=== PATIENT | male | born 1950 | race Caucasian/White ===

== ENCOUNTER 2016-08-30 07:50 | Observation (INO) | payer MEDICARE, MEDICAID ==
--- NOTE | 2016-08-30 08:30 | RAD ---
HISTORY: Chest pain COMPARISONS: April 15, 2016 VIEWS:1: Single frontal portable view of the chest at 8:15 AM. The patient is slightly obliqued to the left. FINDINGS: LINES AND TUBES: None. CARDIOMEDIASTINAL SILHOUETTE: The cardiomediastinal silhouette is normal for portable technique. PLEURA: The costophrenic angles are sharp. No pleural abnormalities are noted. LUNG PARENCHYMA: The lungs are clear. ABDOMEN: The upper abdomen is clear. There is no subphrenic gas. BONES AND SOFT TISSUES: No bone or soft tissue abnormalities are noted. IMPRESSION: NO ACTIVE CARDIOPULMONARY DISEASE.
[2016-08-30 08:48] LABS: Hematocrit 37 % (42-52); Hemoglobin 12.3 g/dl (14.0-18.0); Mean Corpuscular HGB Conc 33 g/dl (31-36); Mean Corpuscular Hemoglobin 32 pg (27-31); Mean Corpuscular Volume 95 fL (80-94); Mean Platelet Volume 10 um3 (7.4-10.4); Red Blood Count 3.87 10^6/ul (4.0-5.4); Red Cell Distribution Width 14 % (10.5-15); White Blood Count 7.4 10^3/ul (3.5-10.8)
[2016-08-30 09:05] LABS: Albumin 3.9 g/dL (3.2-5.2); Calcium 9.4 mg/dL (8.6-10.3); EGFR African American 92.5 (>60); EGFR Non-African American 71.9 (>60); Globulin 2.9 g/dL (2-4); Potassium 4.2 mmol/L (3.5-5.0); Total Bilirubin 0.3 mg/dL (0.2-1.0); Total Protein 6.8 g/dL (6.4-8.9)
[2016-08-30 09:08] LABS: Troponin I 0.03 ng/mL (<0.04)
[2016-08-30] MEDS ORDERED: Iohexol 350* (CONTRAST) 500 ML MDV IV ONE (09:14)
--- NOTE | 2016-08-30 09:20 | RAD ---
HISTORY: Chest pain, left lower extremity edema COMPARISONS: None relevant TECHNIQUE: Multiple transverse and longitudinal ultrasound images were obtained of the left lower extremity from the level of the common femoral vein inferiorly through to the infrapopliteal veins using grayscale, color Doppler, and spectral Doppler imaging with and without compression and with augmentation. Comparison images were obtained of the contralateral common femoral vein. FINDINGS: VEINS: The venous system of the left lower extremity is compressible throughout its course, with normal flow on color Doppler imaging and normal response to augmentation on spectral Doppler imaging. SOFT TISSUES: Unremarkable. OTHER FINDINGS: None. IMPRESSION: NO LEFT LOWER EXTREMITY DEEP VEIN THROMBOSIS
--- NOTE | 2016-08-30 10:12 | RAD ---
Indication: Chest pain. CTA of the chest was performed after IV contrast administered. Coronal and sagittal reconstructed images were obtained. Administered 76.9 ml of OMNIPAQUE 350 mgi/ml was given according to hospital protocol. Coronal and sagittal reconstructed images were obtained. Pulmonary arterial tree is well opacified. No filling defects are noted to suggest pulmonary embolus. The aorta demonstrates no evidence of aortic dissection. There may be an ulcerating plaque in the aortic arch laterally. Dependent changes are noted in the lung butcher. Cardiomegaly is noted without pericardial effusion. The trachea and major bronchi appear patent. There is no mediastinal or hilar adenopathy. The esophagus appears unremarkable IMPRESSION: No evidence of pulmonary embolism is noted. No evidence of aortic dissection although an ulcerating plaque is noted at the aortic arch.
[2016-08-30] MEDS ORDERED: Aspirin TAB* 325 MG PO ONE (11:34)
[2016-08-30 12:00] LABS: Magnesium 1.9 mg/dL (1.9-2.7)
[2016-08-30] MEDS: Baclofen TAB* 10 MG PO SCH (13:27)
[2016-08-30] MEDS: Lisinopril TAB* 10 MG PO SCH (13:27)
[2016-08-30] MEDS: Enoxaparin(*) 40 MG/0.4 ML SYR SUBCUT SCH (13:28)
[2016-08-30] MEDS: NS 0.9% 1000 ML* 1,000 ML IV SCH ×2 (13:31→23:26)
[2016-08-30] MEDS: Triamcinolone 0.025% OINT * 15 GM TUBE TOPICAL SCH (13:35)
--- NOTE | 2016-08-30 14:32 | HP ---
MEDICINE HISTORY AND PHYSICAL: DATE OF ADMISSION: 08/30/16 PROVIDER: Mary Powell NP ATTENDING PHYSICIAN: Dr. Rodney Lazar *(as dictated by Mary Powell NP) PRIMARY CARE PHYSICIAN: Dane Flores. CHIEF COMPLAINT: Chest pain. HISTORY OF PRESENT ILLNESS: Mr. Malcolm is a 66-year-old gentleman with a past medical history significant for multiple sclerosis and hypertension, who presented to the ED today with chest pain. The patient states that the pain "woke me up" around 5:30. He describes the pain as being in his left upper chest and then eventually moving to his right arm which he describes as going numb. The pain also moved to his right jaw. He states that he does have chronic left-sided weakness and paralysis at baseline, so he could not tell if there was any tingling or numbness to that side. He also described the feeling of his heart "pumping fast" and palpitations. He said this has happened before , but usually he waits it out and it resolves over several minutes with deep breathing. He states he waited approximately 1 hour before calling EMS due to lack of resolution of his symptoms. He denies any accompanying nausea, vomiting , diaphoresis. He denies any recent fever, chills, cold, or flu symptoms. He does again report chest pain. He reports chronic left lower extremity edema and states that it is worse today and more recently because he has not been able to keep it elevated as usual and also recently ate salty food. He denies any cough, hemoptysis, or shortness of breath. He denies abdominal pain, nausea , vomiting, or diarrhea. He denies dysuria. He does state that he recently had an UTI, but denies any dysuria or hematuria. He has a history of MS, but denies any focal weakness or sensory loss, beyond his baseline. He does report that he has some worsening double vision. He reports spasms in his right- sided extremities and increasing right shoulder pain, but states this is due to overuse as he uses his right side solely for transfers. The patient denies any difficulty sleeping or orthopnea. In the ED, the patient had initial labs drawn which showed a troponin of 0.03. He had a CTA and a venous Doppler of his left lower extremity, both of which were negative. PAST MEDICAL HISTORY: Significant for: 1. Multiple sclerosis with left paralysis at baseline. 2. Vitamin D deficiency. 3. Hypertension. 4. Depression. 5. Eczema. HOME MEDICATIONS: 1. Tizanidine 4 mg at bedtime. 2. Nystatin topical powder one application b.i.d. 3. Copaxone 20 mg subcu Monday, Wednesdays, and Fridays. 4. Cholecalciferol 3000 units daily. 5. Acetaminophen 1000 mg daily p.r.n. 6. Lisinopril 10 mg daily. 7. Aspirin 81 mg daily. 8. Nortriptyline 50 mg at bedtime. 9. Triamcinolone 0.1% ointment 1 application topical daily. 10. Baclofen 20 mg b.i.d., 10 mg in the evening, and 30 mg at bedtime. 11. Pravastatin 20 mg daily. ALLERGIES: No known drug allergies. FAMILY HISTORY: He reports his father with congenital heart disease. He reports coronary artery disease and leukemia in his mother. He reports a brother with diabetes and a sister with fibromyalgia. SOCIAL HISTORY: The patient states that he started smoking about 19 and quit approximately 10 years ago. He was a 3-tmes-s-day smoker. He denies any illicit drug use. He states that he uses alcohol rarely. He lives at [facility] in [place]. He reports that he does have an aide that comes Monday, Wednesdays, and Fridays for 2 hours a day to help with housework and he has 2 other aides that come in daily for an hour each day to help him with his ADLs. He reports that he has five children and two ex-wives. He is in contact with one of his sons, and his son, Colton Lomax, is his healthcare proxy. In terms of the patient's ADLs, at baseline, he uses a power wheelchair and he is able to transfer from the wheelchair to the bed and to the toilet, but does need help getting into his bathtub. REVIEW OF SYSTEMS: A 14-point review of systems was completed. All pertinent positives and negatives are included in the HPI. All others not mentioned are negative. PHYSICAL EXAMINATION GENERAL: Mr. Malcolm is a 66-year-old male patient who is lying in ED stretcher in no acute distress. VITAL SIGNS: Temperature 98.4, respiratory rate 22, heart rate 100, blood pressure 130/79, O2 saturation 98% on room air. HEENT: Head is atraumatic and normocephalic. Face is symmetrical. Pupils are equal, round, and reactive to light. Extraocular movements are intact. External ears and nose are normal. Oral mucosa appears moist. There is no oropharyngeal erythema or exudate. NECK: Neck is supple. No JVD noted. No lymphadenopathy noted. RESPIRATORY: Lungs are clear to auscultation bilaterally. There is no accessory muscle use. CARDIAC: S1, S2. Heart sounds regular rate and rhythm. No murmurs, rubs, or gallops. ABDOMEN: Soft, nontender, nondistended. Bowel sounds are present in all 4 quadrants. EXTREMITIES: The patient does have left lower extremity edema that is 2+ and pitting. Distal pulses are 2+ in the right lower extremity and 1+ in the left lower extremity. MUSCULOSKELETAL: There is no clubbing or cyanosis. The patient has left-sided paralysis, but good movement and range of motion in the right upper and lower extremities. NEURO: The patient is able to move all extremities. No focal deficits noted, although the patient does have left-sided paralysis at baseline, is unable to mobilize his left upper or lower extremity, this is not new. PSYCH: He is alert and oriented x3. His affect is appropriate. SKIN: Limited assessment, but anteriorly looks to be grossly intact. DIAGNOSTIC STUDIES/LAB DATA: CBC: WBC is 7.4, hemoglobin 12.3, hematocrit 37 , platelet count 219. INR 0.96, PTT 34.5. CMP: Sodium 136, potassium 4.2, chloride 103, carbon dioxide 27, BUN 25, creatinine 1.04, glucose 109, lactic acid 1.3, calcium 9.4. Total bilirubin 0.3, AST 17, ALT 19, alk phos 65. Total CK 86. Troponin 0.03. BNP 9. Albumin 3.9. The patient's venous Doppler shows no left lower extremity deep vein thrombosis. CTA of chest and thorax shows no evidence of pulmonary embolism is noted. No evidence of aortic dissection, also an ulcerative plaque is noted at the aortic arch. Chest x-ray, impression: No active cardiopulmonary disease. The patient's EKG shows sinus tachycardia with borderline left axis deviation and normal R-wave progression, rate 101. Old medical records were reviewed. ASSESSMENT AND PLAN: Mr. Malcolm is a 66-year-old male patient with a past medical history significant for multiple sclerosis, hypertension, former tobacco use, depression, and vitamin D deficiency. He presents today with chest pain. We will admit him under OBV status to the telemetry floor. The plan is as follows: 1. Chest pain. Rule acute coronary syndrome, admit to telemetry. We will trend the patient's troponin. Recheck an EKG and plan for chemical stress test in the morning. The patient will be on heart-healthy diet and then p.o. after midnight. His AVELINO score is 2. Based on risk factors, previous use of aspirin. He has not previously had a stress test. Given that he has been reporting palpitations and chest pains that come and go for several weeks, the plan is to keep the patient here in order to obtain a stress test during this admission. In terms of his tachycardia, the patient does appear to be a little dry. So, I will give him 2 L of fluid. We will also check a mag, A1c, and lipid profile in the morning. 2. Multiple sclerosis. Continue maintenance medications of Copaxone, tizanidine, and baclofen. I will order PT and OT to assist with the patient, so he does not decondition while he is here. 3. Hypertension. Continue lisinopril. 4. Depression. Continue nortriptyline. 5. Eczema. Continue triamcinolone cream. 6. FEN. The patient is ordered a heart-healthy diet and IV hydration. 7. DVT prophylaxis. He is ordered subcu Lovenox. 8. Code status. He is a full code. TIME SPENT: Time spent on this admission was approximately 60 minutes, more than half the time was spent [id number] with the patient obtaining history and physical, performing physical examination, and reviewing the plan of care. Plan of care was also reviewed with my attending, Dr. Lazar, who is in agreement. MARY POWELL NP CC: Dr. Jasvir Rushing* [id number]/CPS #: [id number] SHILA
[2016-08-30] MEDS ORDERED: Baclofen TAB* 10 MG PO SCH ×2 (18:00→21:00)
[2016-08-30] MEDS: Nystatin TOP POWDER* 15 GM BTL TOPICAL SCH ×2 (19:50→19:52)
[2016-08-30] MEDS ORDERED: tiZANidine TAB* 2 MG PO SCH (21:00)
[2016-08-30] MEDS ORDERED: Nortriptyline CAP* 25 MG PO SCH (21:00)
[2016-08-31 05:39] LABS: HDL Cholesterol 25.9 mg/dL
[2016-08-31 05:43] LABS: Troponin I 0.1 ng/mL (<0.04)
--- NOTE | 2016-08-31 08:07 | PN ---
Subjective Date of Service: 08/31/16 Interval History: - patient denies any further CP since he was admitted. He reports he has had similar symptoms before in the past but they have resolved quickly and this time the discomfort/pain seemed to linger. Feels that he is at his baseline. No compliants. denies SOB. Reports left LE swelling but states this is his baseline. Objective Active Medications: Aspirin (Aspirin Ec Low Dose*) 81 mg PO DAILY [facility] Atorvastatin Calcium (Lipitor*) 5 mg PO DAILY [facility] PRN Reason: Protocol Baclofen (Lioresal Tab*) 10 mg PO QPM [facility] Last Admin: 08/30/16 18:02 Dose: 10 mg Baclofen (Lioresal Tab*) 20 mg PO 0800,1200 [facility] Last Admin: 08/30/16 13:27 Dose: 20 mg Baclofen (Lioresal Tab*) 30 mg PO BEDTIME [facility] Last Admin: 08/30/16 19:50 Dose: 30 mg Cholecalciferol (Vitamin D Tab*) 3,000 units PO DAILY [facility] Enoxaparin Sodium (Lovenox(*)) 40 mg SUBCUT Q24H [facility] Last Admin: 08/30/16 13:28 Dose: 40 mg Glatiramer Acetate (Copaxone(Nf)) 20 mg SUBCUT MOWEFR [facility] Sodium Chloride (Ns 0.9% 1000 Ml*) 1,000 mls @ 100 mls/hr IV PER RATE [facility] Stop: 08/31/16 21:44 Last Admin: 08/30/16 23:26 Dose: 100 mls/hr Lisinopril (Prinivil Tab*) 10 mg PO 1300 [facility] Last Admin: 08/30/16 13:27 Dose: 10 mg Nortriptyline HCl (Pamelor Cap*) 50 mg PO BEDTIME [facility] Last Admin: 08/30/16 19:50 Dose: 50 mg Nystatin (Nystatin Top Powder*) 1 applic TOPICAL BID [facility] Last Admin: 08/30/16 19:52 Dose: Not Given Tizanidine HCl (Zanaflex Tab*) 4 mg PO BEDTIME [facility] Last Admin: 08/30/16 19:50 Dose: 4 mg Triamcinolone Acetonide (Triamcinolone 0.025% Oint *) 1 applic TOPICAL DAILY [facility] Last Admin: 08/30/16 13:35 Dose: Not Given Vital Signs 08/30/16 08/30/16 08/30/16 11:00 11:30 12:00 Temperature Pulse Rate 91 89 88 Respiratory 18 11 14 Rate Blood Pressure 130/79 124/83 121/78 (mmHg) O2 Sat by Pulse 97 95 96 Oximetry 08/30/16 08/30/16 08/30/16 12:53 13:03 14:18 Temperature 97.4 F 97.4 F Pulse Rate 91 95 Respiratory 14 14 Rate Blood Pressure 150/102 150/102 (mmHg) O2 Sat by Pulse 100 100 Oximetry 08/30/16 08/30/16 08/30/16 16:24 20:48 23:31 Temperature 97.6 F 97.8 F 97.4 F Pulse Rate 88 84 79 Respiratory 16 14 20 Rate Blood Pressure 121/83 102/66 96/63 (mmHg) O2 Sat by Pulse 95 96 98 Oximetry 08/31/16 04:08 Temperature 97.5 F Pulse Rate 76 Respiratory 16 Rate Blood Pressure 113/62 (mmHg) O2 Sat by Pulse 96 Oximetry Appearance: 66 yo male laying in bed in NAD A+O x3. appropriate Eyes: No Scleral Icterus, PERRLA Ears/Nose/Mouth/Throat: NL Teeth, Lips, Gums, Mucous Membranes Moist Neck: NL Appearance and Movements; NL JVP, Trachea Midline Respiratory: Symmetrical Chest Expansion and Respiratory Effort, Clear to Auscultation Cardiovascular: NL Sounds; No Murmurs; No JVD, RRR Abdominal: NL Sounds; No Tenderness; No Distention Extremities: - - Left sided paralysis Skin: No Rash or Ulcers, No Nodules or Sclerosis Neurological: Alert and Oriented x 3 Lines/Tubes/Other Access: Clean, Dry and Intact Peripheral IV Nutrition: - - npo for stress test Result Diagrams: 08/30/16 08:30 08/30/16 08:30 Assess/Plan/Problems-Billing Assessment: Mr. Malcolm is a 66 yo male with a PMH of MS with L sided paralysis at baseline, HTN, depression and hx of previous tobacco abuse who presented to the ED on 08/30 with c/o chest pain. - Patient Problems (1) Chest pain Comment: - no further chest pain - Trop peaked 0.15, suspect demand ischemia - chemical stress and cardiac nuclear stress test placing him at low risk. - No EKG changes (2) Multiple sclerosis Comment: - continue tizanidine, baclofen and copaxone (3) Depression Comment: - continue nortriptyline (4) HTN (hypertension) Comment: - controlled. continue lisinopril (5) Eczema Comment: - continue Triaminolone cream (6) DVT prophylaxis Comment: lovenox SQ (7) Full code status Status and Disposition: OBV. Plan for DC to home.
[2016-08-31] MEDS: Baclofen TAB* 10 MG PO SCH ×2 (08:20→12:15)
[2016-08-31] MEDS: Nystatin TOP POWDER* 15 GM BTL TOPICAL SCH (08:22)
[2016-08-31] MEDS: Triamcinolone 0.025% OINT * 15 GM TUBE TOPICAL SCH (08:23)
[2016-08-31] MEDS ORDERED: Pneumococcal *Vac Polyvalent 0.5 ML VIAL IM ONE (09:00)
[2016-08-31] MEDS ORDERED: Aspirin EC Low Dose* 81 MG TAB.EC PO SCH (09:00)
[2016-08-31] MEDS ORDERED: Atorvastatin* 10 MG TAB PO SCH (09:00)
[2016-08-31] MEDS ORDERED: Cholecalciferol TAB* 1000 UNITS PO SCH (09:00)
[2016-08-31] MEDS ORDERED: Regadenoson* 0.4 MG/5 ML SYRINGE ONE (11:08)
[2016-08-31 11:59] VITALS: BP 116/77
[2016-08-31] MEDS ORDERED: Glatiramer(NF) 20 MG/ML 1 ML SYRINGE SUBCUT SCH (12:00)
[2016-08-31] MEDS: Enoxaparin(*) 40 MG/0.4 ML SYR SUBCUT SCH (12:15)
[2016-08-31] MEDS: Lisinopril TAB* 10 MG PO SCH (12:16)
--- NOTE | 2016-08-31 12:42 | RAD ---
Edited for charges. Indication: Chest pain. Myocardial perfusion scan was performed after intravenous injection of 10.6 mCi of technetium 99m tetrofosmin for the rest portion of the study. Pharmacological stress was applied and 25.6 mCi of technetium 99m tetrofosmin was injected for the stress portion of the study. The attenuation corrected images demonstrates some mild photopenia in the inferolateral wall. There may be some thickening of this area on the rest images and may represent some mild reversible change. The left ventricle appears normal in size. The ejection fraction at stress is 68%. Evaluation of wall motion demonstrates no evidence of wall motion abnormality. IMPRESSION: There may be a small area of reversible change in the inferolateral wall close to the apex. Normal ejection fraction and wall motion. ASSESSMENT: Low risk Based on imaging criteria from ACC/AHA 2002 Guideline Update for the Management of Patients With Chronic Stable Angina Table 23. Noninvasive Risk Stratification. MTDD
--- NOTE | 2016-08-31 22:02 | DS ---
DISCHARGE SUMMARY: DATE OF ADMISSION: 08/30/16 DATE OF DISCHARGE: 08/31/16 PROVIDER: Clinton Medrano NP ATTENDING PHYSICIAN: Dr. Isaacs *(report dictated by Clinton Medrano NP) PRIMARY CARE PHYSICIAN: Dane Flores. PRIMARY DIAGNOSES: 1. Chest pain of unknown etiology. 2. Indeterminate troponins thought to be secondary to demand ischemia. SECONDARY DIAGNOSES: 1. Multiple sclerosis with left paralysis at baseline. 2. Vitamin D deficiency. 3. Hypertension. 4. Depression. 5. Eczema. DISCHARGED MEDICATIONS: 1. Copaxone 20 mg subcu Monday, Monday, Fridays. 2. Nystatin topical powder 1 application b.i.d. 3. Tizanidine 4 mg at bedtime. 4. Vitamin D 3000 units daily. 5. Acetaminophen 100 mg daily p.r.n. 6. Lisinopril 10 mg p.o. daily. 7. Aspirin 81 mg daily. 8. Nortriptyline 50 mg p.o. at bedtime. 9. Baclofen 20 mg p.o. b.i.d., 10 in the evening and 30 at bedtime. 10. Pravastatin 20 mg daily. 11. Triamcinolone 0.1% ointment 1 application topical daily. HISTORY OF PRESENT ILLNESS AND HOSPITAL COURSE: Please see history and physical by Lara Velasquez NP for whole admission details; but in summary, this is a 66-year- old male with a past medical history as stated above who presented to the emergency department on 08/30/16 with a complaint of chest pain waking him up around 05:30 a.m., described as left upper chest wall pain eventually moving to his right arm with possible numbness and into his right jaw as well as his heart "pumping fast" and palpitations. He reports that he has experienced this before, but usually resolves within a few minutes with deep breathing. He waited approximately an hour and due to continued symptoms, he called the EMS, was brought to the emergency department for further evaluation. He was admitted to the hospitalist service where chest pain rule out acute coronary syndrome. He underwent a CTA and venous Doppler of his left lower extremities, which were both negative. His initial troponin in the emergency department was 0.03 and peaked at 0.15, then trended down. This was thought to be secondary to demand ischemia. The patient underwent a chemical stress test, which showed no significant changes with the chemical stress by EKG. He also underwent a nuclear cardiac stress test, which placed the patient at low risk. Evaluation of the wall motion demonstrates no evidence of wall motion abnormality. The patient has done well throughout his hospitalization overnight. He has had no further chest pain since yesterday morning when he experienced it at home. The patient is stable for discharge home with followup with his PCP as an outpatient. DISCHARGED PLAN: 1. Plan for discharge home by wheelchair van. 2. Follow up with Dr. Rushing on 09/22/16 at 10:20 a.m. CONDITION AT DISCHARGE: Stable. TIME SPENT: Approximately 60 minutes were spent on this discharge. CLINTON MEDRANO NP CC: Dr. Jasvir Rushing* [id number]/CPS #: [id number] MTDD
== END 2016-08-31 16:00 | disposition home or self-care (01) ==
LOC: ED 07:50 → MEDTELE 10:38
PROVIDERS: ADMIT Internal Medicine; ATTEND Internal Medicine
DX: R07.9 Chest pain, unspecified (principal); G35 Multiple sclerosis; G83.89 Other specified paralytic syndromes; E55.9 Vitamin D deficiency, unspecified; I10 Essential (primary) hypertension; F32.9 Major depressive disorder, single episode, unspecified; L30.9 Dermatitis, unspecified; Z79.82 Long term (current) use of aspirin; R60.9 Edema, unspecified
CPT/HCPCS: 36415; 71010; 71275; 78452; 80053; 80061; 82550; 82553; 83036; 83605; 83735; 83874; 83880; 84484; 85025; 85610; 85730; 93005; 93017; 96361; 96372; 99283; A9270-GY; A9502; G0378; J1650; J2785; Q9967

== ENCOUNTER 2017-12-11 19:00 | Emergency (ER) | payer MEDICARE, MEDICAID ==
[2017-12-11] MEDS ORDERED: Acetaminophen TAB* 325 MG PO ONE (19:23)
--- NOTE | 2017-12-11 19:46 | ED ---
Lower Extremity - HPI Summary HPI Summary: Patient is a 67-year-old male who presents emergency left hip pain x one day. Patient lives at home by himself and typically uses a motorized wheelchair secondary to chronic weakness to left side. Pt. states he got stuck in his wheelchair today and developed left hip pain and called EMS. Pt. otherwise denies any complaints. He states he does have home health that comes into the house Monday-Monday. Symptoms are mild in severity. Moving left left - History of Current Complaint Stated Complaint: HIP PAIN Time Seen by Provider: 12/11/17 19:07 Hx Obtained From: Patient - Allergies/Home Medications Allergies/Adverse Reactions: Allergies Allergy/AdvReac Type Severity Reaction Status Date / Time No Known Allergies Allergy Verified 04/27/17 13:06 PMH/Surg Hx/FS Hx/Imm Hx Endocrine/Hematology History: Denies: Hx Anticoagulant Therapy, Hx Diabetes, Hx Thyroid Disease Cardiovascular History: Reports: Hx Angina, Hx Hypercholesterolemia, Hx Hypertension Denies: Hx Coronary Artery Disease, Hx Myocardial Infarction, Hx Pacemaker/ ICD Respiratory History: Reports: Other Respiratory Problems/Disorders - right pneomthorax Denies: Hx Asthma, Hx Chronic Obstructive Pulmonary Disease (COPD) History: Reports: Other Problems/Disorders - UTIs Denies: Hx Renal Disease Musculoskeletal History: Reports: Other Musculoskeletal History - MS Sensory History: Reports: Hx Contacts or Glasses - glasses at home Denies: Hx Cataracts, Hx Eye Injury, Hx Eye Prosthesis, Hx Glaucoma, Hx Macular Degeneration, Hx Vision Problem, Hx Deafness, Hx Hearing Aid, Hx Hearing Problem, Other Sensory Impairments Opthamlomology History: Reports: Hx Contacts or Glasses - glasses at home Denies: Hx Cataracts, Hx Eye Injury, Hx Eye Prosthesis, Hx Glaucoma, Hx Macular Degeneration, Hx Vision Problem, Other Sensory Impairments Neurological History: Reports: Other Neuro Impairments/Disorders - ms exacerbation Denies: Hx Dementia, Hx Developmental Delay, Hx Headaches, Hx Migraine, Hx Nerve Disease, Hx Seizures, Hx Spinal Cord Injury, Hx Transient Ischemic Attacks (TIA) Psychiatric History: Denies: Hx Panic Disorder, Hx Substance Abuse Infectious Disease History: Denies: Hx Clostridium Difficile, Hx Hepatitis, Hx Human Immunodeficiency Virus (HIV), Hx Shingles, Hx Tuberculosis, Traveled Outside the [place] in Last 30 Days - Family History Known Family History: Positive: Diabetes - Social History Alcohol Use: Rare Substance Use Type: Reports: None Smoking Status (MU): Former Smoker Review of Systems All Other Systems Reviewed And Are Negative: Yes Physical Exam Triage Information Reviewed: Yes Vital Signs Reviewed: Yes Appearance: Positive: Obese - Patient lying in bed in no acute distress. Appears unkept. Head/Face: Positive: Normal Head/Face Inspection Eyes: Positive: Normal, [place] Abdomen Description: Positive: Nontender, Soft Musculoskeletal: Positive: Other - Pain on palpation and rotation of the left hip. Chronic edema to left leg. Leg is neurovascularly intact. Neurological: Positive: Normal, CN Intact II-III Psychiatric: Positive: Normal Lower Extremity Course/Dx - Course Course Of Treatment: Patient presenting to the emergency department for left hip pain after sitting. X-ray is negative for fracture acute findings reading per radiology. Patient's pain was improved after dose of Tylenol. Patient states that he does not walk much and primarily uses wheelchair. Pt. states he has home health 5 days a week. Social service consult was placed for f.u. Advised pt. close f.u with PCP if pain continues. May need CT scan of hip if pain continues or worsens. - Diagnoses Differential Diagnosis/HQI/PQRI: Positive: Contusion, Fracture (Closed), Sprain , Strain Provider Diagnoses: Hip pain Discharge - Sign-Out/Discharge Documenting (check all that apply): Discharge/Admit/Transfer - Discharge Plan Condition: Good Disposition: HOME Patient Education Materials: Hip Pain (ED) Referrals: Jasvir Rushing MD [Primary Care Provider] - Additional Instructions: Call your PCP tomorrow for an appointment Tylenol for pain as directed Return to ER if hip pain worsens - Billing Disposition and Condition Condition: GOOD Disposition: HOME
--- NOTE | 2017-12-11 20:30 | RAD ---
INDICATION: Atraumatic left hip pain COMPARISON: None TECHNIQUE: 3 views of the left hip were obtained. FINDINGS: The visualized bones of the left hip are well-corticated and properly aligned. The joint spaces are normal. There is no radiographic evidence of acute fracture or dislocation. IMPRESSION: Normal radiograph of the left hip. If the patient's symptoms persist follow-up imaging is recommended.
[2017-12-12 00:09] VITALS: BP 124/67
== END 2017-12-12 00:10 | disposition home or self-care (01) ==
LOC: ED 19:00
DX: M25.552 Pain in left hip (principal); Z99.3 Dependence on wheelchair; Z87.891 Personal history of nicotine dependence
CPT/HCPCS: 99282; A9270-GY

== ENCOUNTER 2019-03-01 15:59 | Inpatient (IN) | payer MEDICARE, MEDICAID ==
--- NOTE | 2019-03-01 16:51 | ED ---
Neurological HPI - HPI Summary HPI Summary: This patient is a 68-year-old male with a history of MS and stroke with left- sided hemiparalysis BIBA as patient has been unable to care for himself. The fire department states as they're close by they continue to help him with transfers from bed to toilet, Etc. patient currently lives alone and up until recently states has been transferring from his motorized wheelchair to bed and toilet. He has not been doing this recently as it is taking too long and he is weak. Denies any symptoms today. Denies headache, confusion, memory loss, worsening fatigue, urinary symptoms, back pain, abdominal pain, nausea, vomiting , diarrhea, constipation. He states he is only here as he believes he is unable to care for himself after talking to the fire department and EMS alike. He is at this point willing to stay and be admitted for [facility] [facility]. - History of Current Complaint Chief Complaint: EDGeneral Stated Complaint: WELLCARE CHECK PER EMS Time Seen by Provider: 03/01/19 16:04 Hx Obtained From: Patient Onset/Duration: Gradual Onset Timing: Constant Onset Severity: Severe Current Severity: Severe Pain Intensity: 0 - Additional Pertinent History Primary Care Physician: [id number] - Allergy/Home Medications Allergies/Adverse Reactions: Allergies Allergy/AdvReac Type Severity Reaction Status Date / Time No Known Allergies Allergy Verified 02/05/19 09:47 Home Medications: Home Medications Aspirin 81 mg CHEW TAB* 81 mg PO DAILY 03/01/19 [History Confirmed 03/01/19] Cholecalciferol TAB* [Vitamin D TAB*] 3,000 units PO DAILY 03/01/19 [History Confirmed 03/01/19] Metoprolol Succinate 25 mg PO BID 03/01/19 [History Confirmed 03/01/19] tiZANidine TAB* [Zanaflex TAB*] 2 mg PO DAILY 03/01/19 [History Confirmed ] tiZANidine TAB* [Zanaflex TAB*] 2 mg PO SEE INSTRUCTIONS 03/01/19 [History Confirmed 03/01/19] PMH/Surg Hx/FS Hx/Imm Hx Previously Healthy: No Endocrine/Hematology History: Denies: Hx Anticoagulant Therapy, Hx Diabetes, Hx Thyroid Disease Cardiovascular History: Reports: Hx Angina, Hx Hypercholesterolemia, Hx Hypertension Denies: Hx Coronary Artery Disease, Hx Myocardial Infarction, Hx Pacemaker/ ICD Respiratory History: Reports: Other Respiratory Problems/Disorders - right pneomthorax Denies: Hx Asthma, Hx Chronic Obstructive Pulmonary Disease (COPD) History: Reports: Other Problems/Disorders - UTIs Denies: Hx Renal Disease Musculoskeletal History: Reports: Other Musculoskeletal History - MS Sensory History: Reports: Hx Contacts or Glasses - glasses at home Denies: Hx Cataracts, Hx Eye Injury, Hx Eye Prosthesis, Hx Glaucoma, Hx Macular Degeneration, Hx Vision Problem, Hx Deafness, Hx Hearing Aid, Hx Hearing Problem, Other Sensory Impairments Opthamlomology History: Reports: Hx Contacts or Glasses - glasses at home Denies: Hx Cataracts, Hx Eye Injury, Hx Eye Prosthesis, Hx Glaucoma, Hx Macular Degeneration, Hx Vision Problem, Other Sensory Impairments Neurological History: Reports: Other Neuro Impairments/Disorders - ms exacerbation Denies: Hx Dementia, Hx Developmental Delay, Hx Headaches, Hx Migraine, Hx Nerve Disease, Hx Seizures, Hx Spinal Cord Injury, Hx Transient Ischemic Attacks (TIA) Psychiatric History: Denies: Hx Panic Disorder, Hx Substance Abuse - Surgical History Surgery Procedure, Year, and Place: CHEST TUBE PLACED AND REMOVED - Immunization History Hx Pertussis Vaccination: No Immunizations Up to Date: Yes Infectious Disease History: No Infectious Disease History: Denies: Hx Clostridium Difficile, Hx Hepatitis, Hx Human Immunodeficiency Virus (HIV), Hx Shingles, Hx Tuberculosis, Traveled Outside the [place] in Last 30 Days - Family History Known Family History: Positive: Diabetes - Social History Occupation: Unemployed Lives: Alone Alcohol Use: None Hx Substance Use: No Substance Use Type: Reports: None Hx Tobacco Use: Yes Smoking Status (MU): Current Some Day Smoker Type: Cigars Have You Smoked in the Last Year: Yes Review of Systems Negative: Fever, Chills, Fatigue, Skin Diaphoresis Negative: Sore Throat Negative: Palpitations, Chest Pain Negative: Shortness Of Breath, Cough Genitourinary: Negative Positive: no symptoms reported Negative: Arthralgia, Myalgia Skin: Negative Neurological: Negative All Other Systems Reviewed And Are Negative: Yes Physical Exam Triage Information Reviewed: Yes Vital Signs On Initial Exam: Initial Vitals Temp Pulse Resp BP Pulse Ox 98.0 F 90 19 121/80 95 03/01/19 16:10 03/01/19 16:10 03/01/19 16:10 03/01/19 16:10 03/01/19 16:10 Appearance: Positive: Well-Nourished, Ill-Appearing, Cachectic Skin: Positive: Other - mutliple decubitus ulcers throughout Head/Face: Positive: Normal Head/Face Inspection Eyes: Positive: Conjunctiva Clear Neck: Positive: No Lymphadenopathy Respiratory/Lung Sounds: Positive: Clear to Auscultation Cardiovascular: Positive: Pulses are Symmetrical in both Upper and Lower Extremities Abdomen Description: Positive: Nontender, Soft Musculoskeletal: Positive: Other - hemiparalysis Neurological: Positive: Other - left sided weakness/hemiparalysis Psychiatric: Positive: Affect/Mood Appropriate Diagnostics - Vital Signs Vital Signs Temp Pulse Resp BP Pulse Ox 03/01/19 16:10 98.0 F 90 19 121/80 95 - Laboratory Result Diagrams: 03/02/19 05:39 03/02/19 05:39 Lab Statement: Any lab studies that have been ordered have been reviewed, and results considered in the medical decision making process. Course/Dx - Course Course Of Treatment: On arrival into the ED, the patient appears severely disheveled. Patient states he has not taken a bath for approximately 3 weeks. There are multiple decubitus ulcers his inner and outer thighs. Also noted is bruising to his right lower buttocks, right lower leg. Food particles stuck in villarreal, hair and clothing. Smell of feces and urine. Discussed with Dr. Lazar who agrees to admit patient. Pending chest xray, labs and UA, patient will be admitted. - Diagnoses Provider Diagnoses: Condition influencing health status Discharge - Sign-Out/Discharge Documenting (check all that apply): Patient Departure All imaging exams completed and their final reports reviewed: No Studies Patient Received Moderate/Deep Sedation with Procedure: No - Discharge Plan Condition: Fair Disposition: ADMITTED TO [facility] - Billing Disposition and Condition Condition: FAIR Disposition: Admitted to [facility]
[2019-03-01 17:01] LABS: ABS Basophils 0.1 10^3/ul (0-0.2); ABS Eosinophils 0.4 10^3/ul (0-0.6); ABS Lymphocytes 1.7 10^3/ul (1.0-4.8); ABS Monocytes 0.9 10^3/ul (0-0.8); ABS Neutrophils 4.1 10^3/ul (1.5-7.7); Eosinophil % 4.9 %; Hematocrit 45 % (42-52); Hemoglobin 15.3 g/dL (14.0-18.0); Lymphocyte % 24.1 %; Mean Corpuscular HGB Conc 34 g/dL (31-36); Mean Corpuscular Hemoglobin 33 pg (27-31); Mean Corpuscular Volume 96 fL (80-94); Mean Platelet Volume 10.5 fL (7.4-10.4); Platelet Count 244 10^3/uL (150-450); Red Blood Count 4.71 10^6 /uL (4.18-5.48); Red Cell Distribution Width 14 % (10-15); White Blood Count 7.2 10^3/uL (3.5-10.8)
[2019-03-01 17:15] LABS: Albumin 3.9 g/dL (3.2-5.2); Albumin/Globulin Ratio 1.2 (1-3); BUN/Creatinine Ratio 23.7 (8-20); C Reactive Protein 19.37 mg/L (<8.01); Calcium 9.8 mg/dL (8.6-10.3); EGFR African American 93.7 (>60); EGFR Non-African American 77.4 (>60); Globulin 3.3 g/dL (2-4); Total Bilirubin 0.4 mg/dL (0.2-1.0); Total Protein 7.2 g/dL (6.4-8.9)
[2019-03-01 17:53] LABS: Potassium 3.7 mmol/L (3.5-5.0)
[2019-03-01 18:33] LABS: Urine Appearance Clear; Urine Bacteria Absent (Absent); Urine Bilirubin Negative (Negative); Urine Blood 1+ (Negative); Urine Color Yellow; Urine Glucose Negative (Negative); Urine Ketones Trace (Negative); Urine Nitrite Negative (Negative); Urine Protein Negative (Negative); Urine Red Blood Cell 2+(6-10/hpf) (Absent); Urine Specific Gravity 1.027 (1.010-1.030); Urine Squamous Epithelial Cell Present (Absent); Urine Urobilinogen Negative (Negative); Urine White Blood Cell Trace(0-5/hpf) (Absent)
--- NOTE | 2019-03-01 18:58 | HP ---
CC: Dr. Rushing * HISTORY AND PHYSICAL: DATE OF ADMISSION: 03/01/19 PRIMARY CARE PROVIDER: Dr. Rushing. OTHER PROVIDERS: Dr. Monzon, Neurology. ATTENDING PHYSICIAN: Dr. Lazar * (dictated by Jessica Verduzco NP). CHIEF COMPLAINT: 1. Weakness. 2. Unable to care for himself. HISTORY OF PRESENT ILLNESS: Mr. Malcolm is a 68-year-old male with a past medical history significant for MS, hyperlipidemia, hypertension, vitamin D deficiency, spasticity, CVA with left-sided hemiparalysis, who presented to the emergency room on 03/01/19 by ambulance. Per the ED records, the patient lives close to the fire department and they have been continuing to help the man with transfers from toilet to bed. They became concerned due to unkempt living conditions. The patient was evaluated in room 11 in the emergency department. The patient reports that up until 02/22/19 he was doing fairly well as he had visiting nurse service come helping him 2 hours a day 5 days a week. He reports during that time he would often stay in bed and also not eat on the weekends because he could not transfer himself independently and also he was only getting Meals on Wheels Monday through Monday. He reports that on 02/22/19, [facility] closed his case. He reports his nurses stopped coming and they informed him that they were told by their boss to no longer come to his home. The patient reports since 02/22/19, he has been in bed as he is unable to transfer himself to his chair or to the toilet. He further tells me that he had a fall last Monday and was taken to [facility] with an unremarkable workup. While in the emergency room, the patient had a chest x-ray, which is unremarkable. He had a CBC, which revealed minor macrocytosis. He had a BMP, which revealed a slightly elevated glucose and an elevated CRP. Given the concerns for the patient's living conditions being unsafe and his increased weakness, hospitalists were asked to evaluate for admission. PAST MEDICAL HISTORY: 1. MS. 2. Hyperlipidemia. 3. Hypertension. 4. Vitamin D deficiency. 5. Spasticity. 6. CVA, left-sided weakness in 2006 or 2007. PAST SURGICAL HISTORY: He reports he had surgery due to a collapsed lung in 1971. HOME MEDICATIONS: 1. Vitamin D 3000 units p.o. daily. 2. Aspirin 81 mg p.o. daily. 3. Baclofen 20 mg q.a.m. 4. Baclofen 20 mg at noon. 5. Baclofen 10 mg in the evening. 6. Baclofen 30 mg at bedtime. 7. Metoprolol succinate 25 mg p.o. b.i.d. 8. Nortriptyline 50 mg 1 time at bedtime. 9. Pravastatin 20 mg daily. 10. Tizanidine 2 mg q.a.m. 11. Tizanidine 2 mg at noon. 12. Tizanidine 6 mg at bedtime. ALLERGIES: The patient reports he has a sensitivity to peanuts. FAMILY HISTORY: The patient reports his family has a history of diabetes, but no known cardiac or cancer. SOCIAL HISTORY: The patient reports rare cigar use. The patient denies alcohol use. The patient denies drug use. The patient is disabled. The patient is . The patient has 5 adult children. The patient lives alone. The patient's surrogate decision maker will be his son, Colton Szymanski in the situation where he cannot make decision for himself. The patient will be a full code. REVIEW OF SYSTEMS: The patient reports occasional edema in his feet if he eats too much sodium. The patient reports recent cough, which is productive since being in bed. He reports white sputum. The patient reports left-sided weakness , which is baseline for him since his CVA. The patient denies fevers, anorexia , chest pain, hemoptysis, shortness of breath, nausea, vomiting, diarrhea, abdominal pain, gross hematuria, dysuria, visual complaints, nasal congestion, sore throat, myalgias, arthralgias, rashes, lesions, psychosis, anxiety. PHYSICAL EXAMINATION GENERAL: Mr. Malcolm is a 68-year-old male who is lying on the ED stretcher. He is unkempt. He appears to be in no acute distress. He appears stated age. VITAL SIGNS: Temp 98, HR 90, RR 19, O2 saturation 95% on room air, BP 121/80. HEENT: EOMs intact. PERRLA. Oral mucosa is moist without lesions. Posterior pharynx is clear. NECK: Supple. No lymphadenopathy. RESPIRATORY: No accessory muscle use. Symmetrical chest expansion. Lungs are clear. No rhonchi, wheezes, or rubs. Decreased aeration. CARDIAC: S1, S2 present. Regular rate and rhythm. No murmurs, rubs, or gallops. ABDOMEN: Soft, nontender. Bowel sounds normoactive. MUSCULOSKELETAL: Full range of motion. No pain or deformities. EXTREMITIES: Skin is warm and smooth bilaterally. No edema. No clubbing or cyanosis. Pedal pulses 2+ bilaterally. NEURO: The patient is awake, alert, and oriented x4. Cranial nerves II through XII are grossly intact. Motor strength in upper extremities is 5/5 on right and 4/5 on the left. Strength in lower extremities is 5/5 on right and 3/ 5 on the left. SKIN: The patient has abrasion to his right knee. The patient has abrasion to his right posterior calf. The patient's buttocks is reddened throughout, but blanchable. DIAGNOSTIC STUDIES/LAB DATA: WBC 7.2, hemoglobin 15.3, hematocrit 45, platelets 244. Sodium 140, potassium pending, chloride 104, carbon dioxide 28, BUN 23, creatinine 0.97, glucose 106, lactic acid 1.1. AST pending, ALT is 63. CRP is 19.37. ASSESSMENT AND PLAN: Mr. Malcolm is a 68-year-old male with a past medical history significant for multiple sclerosis, hyperlipidemia, hypertension, vitamin D deficiency, spasticity, stroke with left-sided hemiparesis, who presented to the emergency department today due to weakness and concern for the patient's living condition. The patient will be placed OBV. 1. Weakness: The patient reports increasing weakness, which could be secondary to his multiple sclerosis, but could also be an infectious process. He does not have an elevated white count or a fever, but his urine is still pending, which we will wait for urinalysis. 2. Unsafe living conditions: The patient has unsafe living conditions as he is living alone, unable to transfer himself, unable to make food for himself, and [facility] has closed his case. I have placed a social work consult. I have also placed PT/OT. 3. Multiple sclerosis: The patient follows with Dr. Monzon and is currently on an infusion of Ocrevus monthly. He reports that he was on steroid infusions monthly prior to that. He reports he was supposed to have infusion on 02/19/19 , but he was unable to show up as he could not transfer himself and/or obtain transportation. 4. Hyperlipidemia: The patient should continue his statin. 5. Hypertension: The should continue his metoprolol 25 mg p.o. b.i.d. 6. Vitamin D deficiency: The patient should continue his vitamin D 3000 units p.o. daily. 7. Spasticity: I have reordered the patient's muscle relaxing medication as previously ordered. I would recommend monitoring for sedation and holding as needed. 8. Stroke in 2006 or 2007 with left-sided hemiparesis. Once again, the patient is unable to transfer himself or be safe at home currently. I have placed the PT/OT consult. I have also placed a social work consult. 9. FEN: The patient will be provided with a regular diet. 10. Code status: The patient is a full code. 11. DVT prophylaxis: Based on the DVT risk assessment, the patient is a high risk. I will order subcu heparin. TIME SPENT: Approximately 65 minutes were spent on this admission, greater than half the time was spent [id number] with the patient obtaining my history , performing physical exam, and reviewing my plan of care. This case has been reviewed with my attending, Dr. Lazar, who is in agreement with my plan of care. Reviewed by JESSICA VERDUZCO NP 03/18/19 @ [id number]/CPS #: [id number] MTDD
[2019-03-01] MEDS: Baclofen TAB* 10 MG PO SCH ×2 (21:10→21:16)
[2019-03-01] MEDS: Metoprolol Succinate XL TAB* 25 MG PO SCH (21:14)
[2019-03-01] MEDS: Nortriptyline CAP* 25 MG PO SCH (21:15)
[2019-03-01] MEDS: tiZANidine TAB* 2 MG PO SCH (21:15)
[2019-03-01] MEDS: Heparin VIAL(*) 5000 UNITS/ML VIAL (FIVE THOUSAND) SUBCUT SCH (21:18)
[2019-03-02] MEDS: Heparin VIAL(*) 5000 UNITS/ML VIAL (FIVE THOUSAND) SUBCUT SCH ×3 (05:41→21:15)
[2019-03-02 06:15] LABS: ABS Basophils 0.1 10^3/ul (0-0.2); ABS Eosinophils 0.4 10^3/ul (0-0.6); ABS Monocytes 0.8 10^3/ul (0-0.8); Eosinophil % 5.2 %; Hematocrit 41 % (42-52); Hemoglobin 13.8 g/dL (14.0-18.0); Lymphocyte % 27.6 %; Mean Corpuscular HGB Conc 33 g/dL (31-36); Mean Corpuscular Hemoglobin 32 pg (27-31); Mean Corpuscular Volume 96 fL (80-94); Mean Platelet Volume 10.1 fL (7.4-10.4); Nucleated Red Blood Cells % 0.2; Platelet Count 221 10^3/uL (150-450); Red Blood Count 4.31 10^6 /uL (4.18-5.48); Red Cell Distribution Width 14 % (10-15); White Blood Count 7.3 10^3/uL (3.5-10.8)
[2019-03-02 06:27] LABS: Calcium 9.4 mg/dL (8.6-10.3); EGFR African American 110.6 (>60); EGFR Non-African American 91.4 (>60); Potassium 3.5 mmol/L (3.5-5.0)
[2019-03-02] MEDS: Baclofen TAB* 20 MG PO SCH ×2 (09:34→12:42)
[2019-03-02] MEDS: Metoprolol Succinate XL TAB* 25 MG PO SCH ×3 (09:34→23:06)
[2019-03-02] MEDS: tiZANidine TAB* 2 MG PO SCH ×3 (09:34→21:15)
[2019-03-02] MEDS: Cholecalciferol TAB* 1000 UNITS PO SCH (09:34)
[2019-03-02] MEDS: Atorvastatin* 10 MG TAB PO SCH (09:35)
[2019-03-02] MEDS: Aspirin 81 mg CHEW TAB* 81 MG TAB.CHEW PO SCH (09:36)
--- NOTE | 2019-03-02 16:15 | PN ---
Subjective Date of Service: 03/02/19 Interval History: Pt is feeling at baseline. He tells me that he has not been able to really transfer himself at home for quite some time. He has not been eating on the weekends due to lack of meals on wheels and his inability to get out of bed. None of this has changed. He is unsafe to go home as he has no help at home currently. Objective Active Medications: Amoxicillin/Clavulanate Potassium (Augmentin Tab*) 500 mg PO BID [facility] Aspirin (Aspirin 81 Mg Chew Tab*) 81 mg PO DAILY [facility] Last Admin: 03/02/19 09:36 Dose: 81 mg Atorvastatin Calcium (Lipitor*) 5 mg PO DAILY [facility]; Protocol Last Admin: 03/02/19 09:35 Dose: 5 mg Baclofen (Lioresal Tab*) 10 mg PO QPM [facility] Last Admin: 03/01/19 21:10 Dose: Not Given Baclofen (Lioresal Tab*) 20 mg PO 0900,1200 [facility] Last Admin: 03/02/19 12:42 Dose: 20 mg Baclofen (Lioresal Tab*) 30 mg PO BEDTIME [facility] Last Admin: 03/01/19 21:16 Dose: 30 mg Cholecalciferol (Vitamin D Tab*) 3,000 units PO DAILY [facility] Last Admin: 03/02/19 09:34 Dose: 3,000 units Heparin Sodium (Porcine) (Heparin Vial(*)) 5,000 units SUBCUT Q8HR [facility] Last Admin: 03/02/19 14:49 Dose: 5,000 units Metoprolol Succinate (Toprol Xl Tab*) 25 mg PO BID [facility] Last Admin: 03/02/19 09:34 Dose: 25 mg Nortriptyline HCl (Pamelor Cap*) 50 mg PO BEDTIME [facility] Last Admin: 03/01/19 21:15 Dose: 50 mg Tizanidine HCl (Zanaflex Tab*) 6 mg PO BEDTIME [facility] Last Admin: 03/01/19 21:15 Dose: 6 mg Tizanidine HCl (Zanaflex Tab*) 2 mg PO DAILY [facility] Last Admin: 03/02/19 09:34 Dose: 2 mg Tizanidine HCl (Zanaflex Tab*) 2 mg PO DAILY@1200 [facility] Last Admin: 03/02/19 12:42 Dose: 2 mg Vital Signs - 8 hr 03/02/19 11:15 Temperature 97.8 F Pulse Rate 78 Respiratory 18 Rate Blood Pressure 104/72 (mmHg) O2 Sat by Pulse 97 Oximetry Oxygen Devices in Use Now: None Appearance: Middle aged male sitting up in bed, NAD Eyes: No Scleral Icterus Ears/Nose/Mouth/Throat: Mucous Membranes Moist Respiratory: Symmetrical Chest Expansion and Respiratory Effort, Clear to Auscultation Cardiovascular: NL Sounds; No Murmurs; No JVD, RRR, No Edema Abdominal: NL Sounds; No Tenderness; No Distention Extremities: No Clubbing, Cyanosis Skin: No Nodules or Sclerosis Neurological: Alert and Oriented x 3 Result Diagrams: 03/02/19 05:39 03/02/19 05:39 Microbiology and Other Data: Microbiology 03/01/19 18:15 Urine Culture - Preliminary Urine Enterococcus Faecalis Assess/Plan/Problems-Billing Mr Malcolm is a 68 yo M who has a h/o MS and HLD who presented to the ER because of the inability to care for himself. - Patient Problems (1) Multiple sclerosis Current Visit: Yes Status: Chronic Code(s): G35 - MULTIPLE SCLEROSIS SNOMED Code(s): 80330243 Comment: Pt with MS and has been unable to care for himself adequately at home. He had [facility] but they signed off his case despite it leaving him in an unsafe situation. The fire department has been helping the patient get to and from the toilet. The patient will be changed to detention care to work on either arranging home care or placement. These are not new issues and I do not think the patient has decompensated due to UTI. (2) Urinary retention Current Visit: Yes Status: Acute Code(s): R33.9 - RETENTION OF URINE, UNSPECIFIED SNOMED Code(s): 737393592 Comment: Pt with mild urinary retention. Bladder scan revealed 400ml in the bladder. Tomorrow will attempt voiding trial. Urine culture grew E faecalis. Start augmentin for UTI. (3) HLD (hyperlipidemia) Current Visit: Yes Status: Acute Code(s): E78.5 - HYPERLIPIDEMIA, UNSPECIFIED SNOMED Code(s): 85148136 Comment: Continue statin. (4) DVT prophylaxis Current Visit: Yes Status: Acute Code(s): SME8866 - SNOMED Code(s): 707576577 Comment: SQ heparin (5) Full code status Current Visit: Yes Status: Chronic Code(s): Z78.9 - OTHER SPECIFIED HEALTH STATUS SNOMED Code(s): 326793464
[2019-03-02] MEDS: Baclofen TAB* 10 MG PO SCH ×2 (18:31→21:15)
[2019-03-02] MEDS: Amoxicillin/Clavulanate TAB* 500 MG PO SCH ×2 (18:31→21:15)
[2019-03-02] MEDS: Nortriptyline CAP* 25 MG PO SCH (23:06)
[2019-03-03] MEDS: Heparin VIAL(*) 5000 UNITS/ML VIAL (FIVE THOUSAND) SUBCUT SCH ×3 (06:24→22:16)
[2019-03-03] MEDS: tiZANidine TAB* 2 MG PO SCH ×3 (10:42→21:18)
[2019-03-03] MEDS: Cholecalciferol TAB* 1000 UNITS PO SCH (10:42)
[2019-03-03] MEDS: Metoprolol Succinate XL TAB* 25 MG PO SCH ×2 (10:42→21:17)
[2019-03-03] MEDS: Amoxicillin/Clavulanate TAB* 500 MG PO SCH ×2 (10:42→21:19)
[2019-03-03] MEDS: Atorvastatin* 10 MG TAB PO SCH (10:42)
[2019-03-03] MEDS: Aspirin 81 mg CHEW TAB* 81 MG TAB.CHEW PO SCH (10:42)
[2019-03-03] MEDS: Baclofen TAB* 20 MG PO SCH ×2 (11:41→14:24)
[2019-03-03] MEDS: Baclofen TAB* 10 MG PO SCH ×2 (18:36→21:18)
[2019-03-03] MEDS: Nortriptyline CAP* 25 MG PO SCH (21:20)
[2019-03-04 00:25] LABS: Urine Appearance Cloudy; Urine Bacteria 1+ (Absent); Urine Bilirubin Negative (Negative); Urine Blood 2+ (Negative); Urine Color Yellow; Urine Glucose Negative (Negative); Urine Ketones Negative (Negative); Urine Nitrite Negative (Negative); Urine Protein Negative (Negative); Urine Red Blood Cell Trace(0-2/hpf) (Absent); Urine Urobilinogen Negative (Negative); Urine White Blood Cell Trace(0-5/hpf) (Absent)
[2019-03-04] MEDS: Heparin VIAL(*) 5000 UNITS/ML VIAL (FIVE THOUSAND) SUBCUT SCH ×3 (05:32→21:40)
[2019-03-04] MEDS: Amoxicillin/Clavulanate TAB* 500 MG PO SCH ×2 (08:53→21:39)
[2019-03-04] MEDS: Metoprolol Succinate XL TAB* 25 MG PO SCH ×2 (08:53→21:38)
[2019-03-04] MEDS: Aspirin 81 mg CHEW TAB* 81 MG TAB.CHEW PO SCH (08:53)
[2019-03-04] MEDS: Atorvastatin* 10 MG TAB PO SCH (08:53)
[2019-03-04] MEDS: tiZANidine TAB* 2 MG PO SCH ×3 (08:53→21:39)
[2019-03-04] MEDS: Baclofen TAB* 20 MG PO SCH ×2 (08:53→13:04)
[2019-03-04] MEDS: Cholecalciferol TAB* 1000 UNITS PO SCH (08:53)
[2019-03-04] MEDS: Baclofen TAB* 10 MG PO SCH ×2 (17:56→21:38)
[2019-03-04] MEDS: Nortriptyline CAP* 25 MG PO SCH (21:40)
[2019-03-05] MEDS: Heparin VIAL(*) 5000 UNITS/ML VIAL (FIVE THOUSAND) SUBCUT SCH ×3 (06:13→21:30)
[2019-03-05] MEDS: Baclofen TAB* 20 MG PO SCH ×2 (09:59→12:00)
[2019-03-05] MEDS: Atorvastatin* 10 MG TAB PO SCH (09:59)
[2019-03-05] MEDS: Amoxicillin/Clavulanate TAB* 500 MG PO SCH ×2 (10:00→21:30)
[2019-03-05] MEDS: Aspirin 81 mg CHEW TAB* 81 MG TAB.CHEW PO SCH (10:00)
[2019-03-05] MEDS: Cholecalciferol TAB* 1000 UNITS PO SCH (10:00)
[2019-03-05] MEDS: Metoprolol Succinate XL TAB* 25 MG PO SCH ×2 (10:01→21:29)
[2019-03-05] MEDS: tiZANidine TAB* 2 MG PO SCH ×3 (10:01→21:27)
[2019-03-05] MEDS ORDERED: Magnesium Hydroxide LIQ* 30 ML UDC PO PRN (13:46)
[2019-03-05] MEDS ORDERED: Senna TAB 8.6 mg* TAB PO PRN (13:46)
[2019-03-05] MEDS ORDERED: Polyethylene Glycol 3350* 17 GM PACKET PO PRN (13:46)
--- NOTE | 2019-03-05 17:09 | CONSULT ---
Subjective Date of Service: 03/05/19 Interval History: Mr. Malcolm is a 68 yo male with PMH significant for MS, HLD, HTN, vit D deficiency, CVA with left sided hemiparesis; who presented to the hospital with complaints of inability to care for himself and weakness. The patient was noted to have blanchable erythema to his buttocks on admission. Patient seen and examined at bedside. Family History: Unchanged from Admission Social History: Unchanged from Admission Past Medical History: Unchanged from Admission Review of Systems - Measurements Intake and Output: Intake and Output Last 24 Hours 03/03/19 03/04/19 03/05/19 03/06/19 06:59 06:59 06:59 06:59 Intake Total 1020 1500 1360 420 Output Total 540 1000 1325 250 Balance 480 500 35 170 Intake: Oral 1020 1500 1360 420 Output: Urine 100 150 Boss 753 450 7445 250 Residual 50 Boss 18 Fr 50 Other: Estimated Void Small Date of Last Bowel unknown unknown Movement # Bowel Movements 0 0 # Voids 2 - Review of Systems Constitutional Symptoms: Negative: Fever, Other - Chills Objective Active Medications: Amoxicillin/Clavulanate Potassium (Augmentin Tab*) 500 mg PO BID [facility] Aspirin (Aspirin 81 Mg Chew Tab*) 81 mg PO DAILY [facility] Atorvastatin Calcium (Lipitor*) 5 mg PO DAILY [facility]; Protocol Baclofen (Lioresal Tab*) 10 mg PO QPM [facility] Baclofen (Lioresal Tab*) 20 mg PO 0900,1200 [facility] Baclofen (Lioresal Tab*) 30 mg PO BEDTIME [facility] Cholecalciferol (Vitamin D Tab*) 3,000 units PO DAILY [facility] Docusate Sodium (Colace Cap*) 100 mg PO BID [facility] Heparin Sodium (Porcine) (Heparin Vial(*)) 5,000 units SUBCUT Q8HR [facility] Magnesium Hydroxide (Milk Of Magnesia Liq*) 30 ml PO BID [facility] Magnesium Hydroxide (Milk Of Magnesia Liq*) 30 ml PO BID PRN Reason: CONSTIPATION Metoprolol Succinate (Toprol Xl Tab*) 25 mg PO BID [facility] Nortriptyline HCl (Pamelor Cap*) 50 mg PO BEDTIME [facility] Polyethylene Glycol/Electrolytes (Miralax*) 17 gm PO DAILY PRN Reason: CONSTIPATION Senna (Senokot Tab*) 1 tab PO BEDTIME PRN Reason: CONSTIPATION Tizanidine HCl (Zanaflex Tab*) 6 mg PO BEDTIME [facility] Tizanidine HCl (Zanaflex Tab*) 2 mg PO DAILY [facility] Tizanidine HCl (Zanaflex Tab*) 2 mg PO DAILY@1200 [facility] Vital Signs - 8 hr 03/05/19 11:15 Temperature 97.5 F Pulse Rate 75 Respiratory 17 Rate Blood Pressure 116/60 (mmHg) O2 Sat by Pulse 97 Oximetry Oxygen Devices in Use Now: None Appearance: NAD, laying in bed Ears/Nose/Mouth/Throat: Mucous Membranes Moist Respiratory: Symmetrical Chest Expansion and Respiratory Effort Cardiovascular: No Edema Skin: - - See skin note below Neurological: Alert and Oriented x 3 Nutrition: Taking PO's Result Diagrams: 03/02/19 05:39 03/02/19 05:39 Microbiology and Other Data: Microbiology 03/01/19 18:15 Urine Culture - Preliminary Urine Enterococcus Faecalis Skin Deviation Note - Skin Deviation Findings Buttocks - There is a superficial open area to the left buttocks, measures 0.5 cm x 2.5 cm x 0.1 cm. The wound base is red granulation tissue. The surrounding skin with dark erythema, blanchable. There is no drainage noted. Assessment/Plan: Mr. Malcolm is a 68 yo male with PMH significant for MS, HLD, HTN, vit D deficiency, CVA with left sided hemiparesis; who presented to the hospital with complaints of inability to care for himself and weakness. Was noted to have blanchable erythema to his buttocks on admission. 1. Blanchable Erythema and shearing injury to the left buttocks. Recommend frequent turning and repositioning. Apply barrier cream to the buttocks. If the patient is not incontinent, do not use a "high school guidance counselor pad" and use only a draw sheet to decrease shearing. Use a lifting device for moving the patient in bed. Consider checking a prealbumin level to evaluate nutritional status. 2. Diet. Regular diet. 3. Code Status. Full Code Status. 4. Inpatient. Disposition per primary team. TIME SPENT: Time for this wound consultation was 20 minutes and 10 minutes was spent with the patient discussing past medical history; assessing, measuring, and photographing the wounds. Wound Problem/Plan Assessment:
[2019-03-05] MEDS: Baclofen TAB* 10 MG PO SCH ×2 (17:14→21:28)
[2019-03-05] MEDS: Magnesium Hydroxide LIQ* 30 ML UDC PO SCH (21:25)
[2019-03-05] MEDS: Nortriptyline CAP* 25 MG PO SCH (21:29)
[2019-03-05] MEDS: Docusate CAP* 100 MG PO SCH (21:30)
[2019-03-06] MEDS: Heparin VIAL(*) 5000 UNITS/ML VIAL (FIVE THOUSAND) SUBCUT SCH ×3 (06:04→21:48)
[2019-03-06] MEDS: Atorvastatin* 10 MG TAB PO SCH (09:34)
[2019-03-06] MEDS: Amoxicillin/Clavulanate TAB* 500 MG PO SCH ×2 (09:35→21:48)
[2019-03-06] MEDS: Aspirin 81 mg CHEW TAB* 81 MG TAB.CHEW PO SCH (09:36)
[2019-03-06] MEDS: Magnesium Hydroxide LIQ* 30 ML UDC PO SCH ×2 (09:36→21:48)
[2019-03-06] MEDS: Metoprolol Succinate XL TAB* 25 MG PO SCH ×2 (09:36→21:46)
[2019-03-06] MEDS: Cholecalciferol TAB* 1000 UNITS PO SCH (09:36)
[2019-03-06] MEDS: Docusate CAP* 100 MG PO SCH ×2 (09:36→21:47)
[2019-03-06] MEDS: tiZANidine TAB* 2 MG PO SCH ×3 (09:37→21:45)
[2019-03-06] MEDS: Baclofen TAB* 20 MG PO SCH ×2 (10:10→11:01)
[2019-03-06] MEDS: Baclofen TAB* 10 MG PO SCH ×2 (18:27→21:47)
[2019-03-06] MEDS: Nortriptyline CAP* 25 MG PO SCH (21:48)
[2019-03-07] MEDS: Heparin VIAL(*) 5000 UNITS/ML VIAL (FIVE THOUSAND) SUBCUT SCH ×3 (06:26→22:07)
[2019-03-07] MEDS: Baclofen TAB* 20 MG PO SCH ×2 (09:42→15:16)
[2019-03-07] MEDS: Atorvastatin* 10 MG TAB PO SCH (09:42)
[2019-03-07] MEDS: tiZANidine TAB* 2 MG PO SCH ×3 (09:43→22:05)
[2019-03-07] MEDS: Cholecalciferol TAB* 1000 UNITS PO SCH (09:44)
[2019-03-07] MEDS: Amoxicillin/Clavulanate TAB* 500 MG PO SCH ×2 (09:44→22:06)
[2019-03-07] MEDS: Magnesium Hydroxide LIQ* 30 ML UDC PO SCH ×2 (09:45→22:11)
[2019-03-07] MEDS: Metoprolol Succinate XL TAB* 25 MG PO SCH ×2 (09:45→22:06)
[2019-03-07] MEDS: Aspirin 81 mg CHEW TAB* 81 MG TAB.CHEW PO SCH (09:45)
[2019-03-07] MEDS: Docusate CAP* 100 MG PO SCH ×2 (09:45→22:04)
[2019-03-07] MEDS: Baclofen TAB* 10 MG PO SCH ×2 (17:28→22:06)
[2019-03-07] MEDS: Nortriptyline CAP* 25 MG PO SCH (22:05)
[2019-03-08] MEDS: Heparin VIAL(*) 5000 UNITS/ML VIAL (FIVE THOUSAND) SUBCUT SCH ×3 (06:51→21:47)
[2019-03-08] MEDS: Cholecalciferol TAB* 1000 UNITS PO SCH (09:42)
[2019-03-08] MEDS: Metoprolol Succinate XL TAB* 25 MG PO SCH ×2 (09:43→21:47)
[2019-03-08] MEDS: Docusate CAP* 100 MG PO SCH ×2 (09:43→21:46)
[2019-03-08] MEDS: Atorvastatin* 10 MG TAB PO SCH (09:43)
[2019-03-08] MEDS: Baclofen TAB* 20 MG PO SCH ×2 (09:43→11:52)
[2019-03-08] MEDS: tiZANidine TAB* 2 MG PO SCH ×3 (09:43→21:46)
[2019-03-08] MEDS: Aspirin 81 mg CHEW TAB* 81 MG TAB.CHEW PO SCH (09:43)
[2019-03-08] MEDS: Amoxicillin/Clavulanate TAB* 500 MG PO SCH ×2 (09:43→21:46)
[2019-03-08] MEDS: Magnesium Hydroxide LIQ* 30 ML UDC PO SCH ×2 (09:44→21:47)
[2019-03-08] MEDS: Baclofen TAB* 10 MG PO SCH ×2 (17:45→21:47)
[2019-03-08] MEDS: Nortriptyline CAP* 25 MG PO SCH (21:46)
[2019-03-09] MEDS: Heparin VIAL(*) 5000 UNITS/ML VIAL (FIVE THOUSAND) SUBCUT SCH ×3 (06:21→21:57)
--- NOTE | 2019-03-09 09:35 | PN ---
Subjective Date of Service: 03/09/19 Interval History: Pt has no new complaints. still unable to transfer by himself. appetite good, no pain Family History: Unchanged from Admission Social History: Unchanged from Admission Past Medical History: Unchanged from Admission Objective Active Medications: Aspirin (Aspirin 81 Mg Chew Tab*) 81 mg PO DAILY [facility] Last Admin: 03/08/19 09:43 Dose: 81 mg Atorvastatin Calcium (Lipitor*) 5 mg PO DAILY [facility]; Protocol Last Admin: 03/08/19 09:43 Dose: 5 mg Baclofen (Lioresal Tab*) 10 mg PO QPM [facility] Last Admin: 03/08/19 17:45 Dose: 10 mg Baclofen (Lioresal Tab*) 20 mg PO 0900,1200 [facility] Last Admin: 03/08/19 11:52 Dose: 20 mg Baclofen (Lioresal Tab*) 30 mg PO BEDTIME [facility] Last Admin: 03/08/19 21:47 Dose: 30 mg Cholecalciferol (Vitamin D Tab*) 3,000 units PO DAILY [facility] Last Admin: 03/08/19 09:42 Dose: 3,000 units Docusate Sodium (Colace Cap*) 100 mg PO BID [facility] Last Admin: 03/08/19 21:46 Dose: 100 mg Heparin Sodium (Porcine) (Heparin Vial(*)) 5,000 units SUBCUT Q8HR [facility] Last Admin: 03/09/19 06:21 Dose: 5,000 units Magnesium Hydroxide (Milk Of Magnesia Liq*) 30 ml PO BID [facility] Last Admin: 03/08/19 21:47 Dose: Not Given Magnesium Hydroxide (Milk Of Magnesia Liq*) 30 ml PO BID PRN PRN Reason: CONSTIPATION Last Admin: 03/05/19 17:15 Dose: 30 ml Metoprolol Succinate (Toprol Xl Tab*) 25 mg PO BID [facility] Last Admin: 03/08/19 21:47 Dose: 25 mg Nortriptyline HCl (Pamelor Cap*) 50 mg PO BEDTIME [facility] Last Admin: 03/08/19 21:46 Dose: 50 mg Polyethylene Glycol/Electrolytes (Miralax*) 17 gm PO DAILY PRN PRN Reason: CONSTIPATION Senna (Senokot Tab*) 1 tab PO BEDTIME PRN PRN Reason: CONSTIPATION Tizanidine HCl (Zanaflex Tab*) 6 mg PO BEDTIME [facility] Last Admin: 03/08/19 21:46 Dose: 6 mg Tizanidine HCl (Zanaflex Tab*) 2 mg PO DAILY [facility] Last Admin: 03/08/19 09:43 Dose: 2 mg Tizanidine HCl (Zanaflex Tab*) 2 mg PO DAILY@1200 [facility] Last Admin: 03/08/19 11:52 Dose: 2 mg Vital Signs - 8 hr 03/09/19 03/09/19 03/09/19 03:43 07:46 07:52 Temperature 96.8 F 97.8 F Pulse Rate 65 67 Respiratory 18 18 14 Rate Blood Pressure 101/69 118/68 (mmHg) O2 Sat by Pulse 95 95 Oximetry Oxygen Devices in Use Now: None Appearance: 68 yo M in NAD, AAOx3 Eyes: No Scleral Icterus, PERRLA Ears/Nose/Mouth/Throat: NL Teeth, Lips, Gums, Mucous Membranes Moist Neck: NL Appearance and Movements; NL JVP, Trachea Midline Respiratory: Symmetrical Chest Expansion and Respiratory Effort, Clear to Auscultation Cardiovascular: NL Sounds; No Murmurs; No JVD, RRR Abdominal: NL Sounds; No Tenderness; No Distention Lymphatic: No Cervical Adenopathy Extremities: No Edema, No Clubbing, Cyanosis Skin: No Rash or Ulcers, No Nodules or Sclerosis Neurological: Alert and Oriented x 3, - - left facial droop flaccid left hemiparesis Result Diagrams: 03/02/19 05:39 03/02/19 05:39 Microbiology and Other Data: Microbiology 03/01/19 18:15 Urine Culture - Preliminary Urine Enterococcus Faecalis Assess/Plan/Problems-Billing Mr Malcolm is a 68 yo M who has a h/o MS and HLD who presented to the ER because of the inability to care for himself. - Patient Problems (1) Multiple sclerosis Comment: Pt with MS and has been unable to care for himself adequately at home. He had [facility] but they signed off his case despite it leaving him in an unsafe situation. The fire department has been helping the patient get to and from the toilet. He is now on half-way care to work on arranging placement. (2) Urinary retention Comment: Pt had urinary retention and Boss was placed several days ago. Wishes to have a voiding trial since his antibiotics for UTI are completed. will d/c Boss , obtain post void later in the day. (3) HTN (hypertension) Comment: - controlled. continue lopressor (4) UTI (urinary tract infection) Comment: completed 7 day course of Augmentin for E. Faecalis UTI (5) DVT prophylaxis Comment: SQ heparin
[2019-03-09] MEDS: Baclofen TAB* 20 MG PO SCH ×2 (09:41→13:06)
[2019-03-09] MEDS: Metoprolol Succinate XL TAB* 25 MG PO SCH ×2 (09:41→20:26)
[2019-03-09] MEDS: Atorvastatin* 10 MG TAB PO SCH (09:41)
[2019-03-09] MEDS: Docusate CAP* 100 MG PO SCH ×2 (09:41→20:27)
[2019-03-09] MEDS: Aspirin 81 mg CHEW TAB* 81 MG TAB.CHEW PO SCH (09:41)
[2019-03-09] MEDS: Cholecalciferol TAB* 1000 UNITS PO SCH (09:42)
[2019-03-09] MEDS: Magnesium Hydroxide LIQ* 30 ML UDC PO SCH ×2 (09:43→20:26)
[2019-03-09] MEDS: tiZANidine TAB* 2 MG PO SCH ×3 (09:43→20:26)
[2019-03-09] MEDS: Baclofen TAB* 10 MG PO SCH ×2 (18:00→20:26)
[2019-03-09] MEDS: Nortriptyline CAP* 25 MG PO SCH (20:26)
[2019-03-10] MEDS: Heparin VIAL(*) 5000 UNITS/ML VIAL (FIVE THOUSAND) SUBCUT SCH ×3 (05:34→21:59)
[2019-03-10] MEDS: Docusate CAP* 100 MG PO SCH ×2 (09:21→21:57)
[2019-03-10] MEDS: Atorvastatin* 10 MG TAB PO SCH (09:21)
[2019-03-10] MEDS: Cholecalciferol TAB* 1000 UNITS PO SCH (09:21)
[2019-03-10] MEDS: Metoprolol Succinate XL TAB* 25 MG PO SCH (09:22)
[2019-03-10] MEDS: Baclofen TAB* 20 MG PO SCH ×2 (09:22→11:40)
[2019-03-10] MEDS: Magnesium Hydroxide LIQ* 30 ML UDC PO SCH ×2 (09:23→21:57)
[2019-03-10] MEDS: Aspirin 81 mg CHEW TAB* 81 MG TAB.CHEW PO SCH (09:23)
[2019-03-10] MEDS: tiZANidine TAB* 2 MG PO SCH ×3 (09:23→21:57)
[2019-03-10] MEDS: Baclofen TAB* 10 MG PO SCH ×2 (17:34→21:57)
[2019-03-10] MEDS ORDERED: Metoprolol Succinate XL TAB* 25 MG PO SCH (21:00)
[2019-03-10] MEDS: Nortriptyline CAP* 25 MG PO SCH (21:57)
[2019-03-11] MEDS: Heparin VIAL(*) 5000 UNITS/ML VIAL (FIVE THOUSAND) SUBCUT SCH (06:05)
[2019-03-11] MEDS: Metoprolol Succinate XL TAB* 25 MG PO SCH (08:45)
[2019-03-11] MEDS: tiZANidine TAB* 2 MG PO SCH ×3 (08:45→22:09)
[2019-03-11] MEDS: Baclofen TAB* 20 MG PO SCH ×2 (08:45→12:39)
[2019-03-11] MEDS: Cholecalciferol TAB* 1000 UNITS PO SCH (08:45)
[2019-03-11] MEDS: Aspirin 81 mg CHEW TAB* 81 MG TAB.CHEW PO SCH (08:45)
[2019-03-11] MEDS ORDERED: Metoprolol Succinate XL TAB* 25 MG PO SCH (09:00)
[2019-03-11] MEDS: Baclofen TAB* 10 MG PO SCH ×2 (17:26→22:08)
[2019-03-11] MEDS: Nortriptyline CAP* 25 MG PO SCH (22:09)
[2019-03-11] MEDS: Enoxaparin(*) 40 MG/0.4 ML SYR SUBCUT SCH (22:11)
[2019-03-12] MEDS ORDERED: oxyCODONE/Acetamin 5/325 MG* TAB PO PRN (03:40)
[2019-03-12] MEDS: oxyCODONE/Acetamin 5/325 MG* TAB ONE ×2 (03:48→04:17)
[2019-03-12 06:03] LABS: Hematocrit 41 % (42-52); Hemoglobin 13.5 g/dL (14.0-18.0); Mean Platelet Volume 9.9 fL (7.4-10.4); Platelet Count 228 10^3/uL (150-450)
[2019-03-12 06:14] LABS: EGFR African American 86.5 (>60); EGFR Non-African American 71.5 (>60)
[2019-03-12] MEDS: tiZANidine TAB* 2 MG PO SCH ×3 (09:19→21:06)
[2019-03-12] MEDS: Baclofen TAB* 20 MG PO SCH ×2 (09:19→12:36)
[2019-03-12] MEDS: Aspirin 81 mg CHEW TAB* 81 MG TAB.CHEW PO SCH (09:19)
[2019-03-12] MEDS: Metoprolol Succinate XL TAB* 25 MG PO SCH (09:20)
[2019-03-12] MEDS: Cholecalciferol TAB* 1000 UNITS PO SCH (09:20)
[2019-03-12] MEDS: Baclofen TAB* 10 MG PO SCH ×2 (17:23→21:07)
[2019-03-12] MEDS: Enoxaparin(*) 40 MG/0.4 ML SYR SUBCUT SCH (21:07)
[2019-03-12] MEDS: Nortriptyline CAP* 25 MG PO SCH (21:09)
[2019-03-13] MEDS: Cholecalciferol TAB* 1000 UNITS PO SCH (09:10)
[2019-03-13] MEDS: tiZANidine TAB* 2 MG PO SCH ×2 (09:10→12:52)
[2019-03-13] MEDS: Aspirin 81 mg CHEW TAB* 81 MG TAB.CHEW PO SCH (09:10)
[2019-03-13] MEDS: Baclofen TAB* 20 MG PO SCH ×2 (09:11→12:53)
[2019-03-13 11:34] VITALS: BP 118/76
--- NOTE | 2019-03-13 12:51 | DS ---
Amended report to correct date of discharge. CC: Dr. Jasvir Rushing* DATE OF ADMISSION: 03/02/2019. DATE OF DISCHARGE: 03/13/2019. PRIMARY CARE PHYSICIAN: Dr. Jasvir Rushing. PRIMARY DIAGNOSES: 1. Inability to care for self at home. 2. Multiple sclerosis. 3. Urinary retention. 4. UTI. 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 DISCHARGE MEDICATIONS: 1. Tizanidine 2 mg in the morning and at noon, 6 mg at bedtime. 2. Nortriptyline 50 mg nightly. 3. Baclofen 20 mg in the morning, 30 at noon, and 30 at bedtime. 4. Aspirin 81 mg daily. 5. Vitamin D 3,000 units daily. 6. Milk of Magnesia 30 ml p.o. twice a day as needed for constipation. HISTORY OF PRESENT ILLNESS: Mr. Malcolm is a 68-year-old man with MS complicated by spasticity and CVA in 2007 complicated by left-sided hemiparalysis who presented to the emergency room given inability to care for self at home. Per the ED records, the patient was close to the fire department and they have been continuing to help with transfers from the toilet to the bed and eventually they became concerned due to unkempt living conditions and called 911 to transport the patient to the hospital. The patient reports that up until approximately one week prior to presentation, he was doing fairly well at home as he had a visiting nurse service helping him two hours a day five days a week. He reports during that time he would often stay in bed, but no eat on the weekends because he was unable to transfer himself independently. He was only getting meals Monday through Monday from [employer]. One week prior to presentation to the ER, the patient reports that [facility] closed his case. He reports the nurses stopped coming and they informed him they were told by their boss to no longer come to his home. Since that time, he had been in bed unable to transfer himself to the toilet. The patient also reports that prior to this time, he had recently had a fall and was taken to [place] where he had an unremarkable medical work-up. HOSPITAL COURSE: In the emergency room, labs were generally unremarkable as was the chest x-ray. The patient was admitted given concern for his unsafe living conditions at home. Throughout admission he remained under [facility] care while pending placement in a nursing facility. Briefly during admission, he experienced urinary retention for which a Boss catheter was placed. His urine cultures at that time grew E. faecalis, so he was given a seven day course of Augmentin for a UTI. The patient was able to have the Boss catheter removed and passed his trial of void, and since then has been urinating spontaneously. The patient was titrated off of his blood pressure medication Metoprolol, given systolic blood pressure occasionally in the upper 90s during admission, and since stopping blood pressure medications, his blood pressure has remained at goal with a heart rate in the 70s to 80s. His hospitalization was otherwise uneventful. On the day of discharge, a ten point review of systems was performed and significant only for chronic left-sided weakness. The patient did deny anxiety , pain, shortness of breath, dysuria, abdominal pain, or chest pain. PHYSICAL EXAMINATION: General: He is a chronically ill-appearing man who appears older than his stated age, but does appear comfortable. He is alert and interactive. Vital Signs: Afebrile, heart rate 83, blood pressure 100/58, respiratory rate 18, oxygen saturation 99 percent on room air. HEENT: Moist mucus membranes, oropharynx clear. Neck: Supple, no JVD. Lungs: No increased work of breathing. Lungs clear to auscultation bilaterally. Heart: Regular rate and rhythm. No murmurs, gallops, or rubs. Abdomen: Soft, nontender, nondistended. No suprapubic tenderness. Extremities: Warm and well- perfused without evidence of edema. Neuro: The patient is alert and oriented times three. Motor strength is 3/5 in the left arm and left leg, 5/5 in the right arm and right leg. DIAGNOSTIC STUDIES AND IMAGIN. Discharge hemoglobin 13.5 with MCV 96. 2. Creatinine on discharge is 1. 3. Urine culture on March 01 grew enterococcus faecalis over 100,000 CFU, indeterminate to nitrofurantoin. 4. Chest x-ray with no evidence for acute cardiopulmonary disease. DISCHARGE PLAN: The patient was accepted to [facility] in [place]. He should continue to follow-up with his primary care physician and Neurology for his chronic medical problems. He is to continue all of his medications as listed above. The patient was educated on return precautions, which include but are not limited to fever, chest pain, or flank pain. He is to resume a healthy diet with activity as tolerated. DISPOSITION: To [facility]. CONDITION ON DISCHARGE: Stable. TIME SPENT: Approximately 60 minutes were spent in the discharge of this patient, more than half of which was spent with care coordination at [facility] for interview and exam. [id number]/CPS #: [id number] MTDD
== END 2019-03-13 13:20 | DRG 59 ==
LOC: ED 15:59 → MED 17:24 → OBSVTOIN 03-02 15:31
PROVIDERS: ADMIT Internal Medicine; ATTEND Internal Medicine
DX: G35 Multiple sclerosis (principal); N39.0 Urinary tract infection, site not specified; I69.354 Hemiplegia and hemiparesis following cerebral infarction affecting left non-dominant side; L98.411 Non-pressure chronic ulcer of buttock limited to breakdown of skin; B95.2 Enterococcus as the cause of diseases classified elsewhere; R33.9 Retention of urine, unspecified; Z75.1 Person awaiting admission to adequate facility elsewhere; E78.5 Hyperlipidemia, unspecified; I10 Essential (primary) hypertension; E55.9 Vitamin D deficiency, unspecified; R25.2 Cramp and spasm; Z79.82 Long term (current) use of aspirin; Z79.899 Other long term (current) drug therapy; Z91.010 Allergy to peanuts
CPT/HCPCS: 36415; 71045; 80048; 80053; 81003; 81015; 82565; 83605; 85014; 85018; 85025; 85049; 86140; 87077; 87086; 87186; 99284; A9270-GY; G0378; G8978-GP-CM; G8979-GP-CJ; G8987-GO-CM; G8988-GO-CJ; J1644; J1650

== ENCOUNTER 2020-02-10 07:05 | Inpatient (IN) ==
[2020-02-10 07:44] LABS: ABS Basophils 0.1 10^3/ul (0-0.2); ABS Eosinophils 0.3 10^3/ul (0-0.6); ABS Lymphocytes 1.4 10^3/ul (1.0-4.8); ABS Monocytes 1.1 10^3/ul (0-0.8); ABS Neutrophils 7.1 10^3/ul (1.5-7.7); Eosinophil % 3.2 %; Hematocrit 22 % (42-52); Hemoglobin 7.4 g/dL (14.0-18.0); Lymphocyte % 13.9 %; Mean Corpuscular HGB Conc 34 g/dL (31-36); Mean Corpuscular Hemoglobin 27 pg (27-31); Mean Corpuscular Volume 81 fL (80-94); Mean Platelet Volume 8.3 fL (7.4-10.4); Platelet Count 572 10^3/uL (150-450); Red Blood Count 2.73 10^6 /uL (4.18-5.48); Red Cell Distribution Width 19 % (10-15)
[2020-02-10 08:03] LABS: Albumin 2.8 g/dL (3.2-5.2); Albumin/Globulin Ratio 0.7 (1-3); EGFR African American 98.1 (>60); Globulin 4.1 g/dL (2-4); Potassium 3.4 mmol/L (3.5-5.0); Total Bilirubin 0.4 mg/dL (0.2-1.0); Total Protein 6.9 g/dL (6.4-8.9)
[2020-02-10 08:05] LABS: Troponin I 0.01 ng/mL (<0.03)
[2020-02-10] MEDS ORDERED: Iohexol 350 (CONTRAST) 500 ML MDV IV ONE (08:28)
[2020-02-10 08:41] LABS: TSH Ultra Thyroid Stim Horm 1.26 mcIU/mL (0.34-5.60)
[2020-02-10] MEDS ORDERED: Enoxaparin 80 MG/0.8 ML SYR SUBCUT ONE (09:17)
[2020-02-10 09:42] LABS: Activated Partial Thrombo Time 24.9 seconds (26.0-38.0); INR 1.34 (0.82-1.09)
[2020-02-10] MEDS ORDERED: NS 0.9% 1000 ml BAG 1,000 ML IV SCH (10:30)
[2020-02-10] MEDS ORDERED: Magnesium Hydroxide LIQ 30 ML UDC PO PRN (10:30)
[2020-02-10 11:12] LABS: Hepatitis C Antibody Reactive (Negative)
[2020-02-10 11:46] LABS: Urine Appearance Turbid; Urine Bilirubin Negative (Negative); Urine Blood 2+ (Negative); Urine Color Yellow; Urine Glucose Negative (Negative); Urine Ketones Negative (Negative); Urine Nitrite Negative (Negative); Urine Protein 2+(100 mg/dL) (Negative); Urine Specific Gravity 1.034 (1.010-1.030); Urine Urobilinogen Negative (Negative)
[2020-02-10 11:53] LABS: Urine Bacteria 3+ (Absent); Urine Red Blood Cell 3+(>10/hpf) (Absent); Urine White Blood Cell 3+(>20/hpf) (Absent)
[2020-02-10] MEDS: Senna TAB 8.6 mg TAB PO SCH (20:37)
[2020-02-11 06:34] LABS: BUN/Creatinine Ratio 24.7 (8-20); Calcium 8.6 mg/dL (8.6-10.3); EGFR African American 121.9 (>60); EGFR Non-African American 100.8 (>60); Potassium 3.4 mmol/L (3.5-5.0)
[2020-02-11 06:51] LABS: Hematocrit 19 % (42-52); Hemoglobin 6.2 g/dL (14.0-18.0); Mean Corpuscular HGB Conc 34 g/dL (31-36); Mean Corpuscular Hemoglobin 27 pg (27-31); Mean Corpuscular Volume 81 fL (80-94); Mean Platelet Volume 8.3 fL (7.4-10.4); Platelet Count 525 10^3/uL (150-450); Red Cell Distribution Width 19 % (10-15); White Blood Count 9.2 10^3/uL (3.5-10.8)
[2020-02-11] MEDS: Polyethylene Glycol 3350 17 GM PACKET PO SCH (08:32)
[2020-02-11 09:14] LABS: Ferritin 163.9 ng/mL (24-336)
[2020-02-11 09:18] LABS: Vitamin B12 264 pg/mL (180-914)
[2020-02-11 09:44] LABS: Folate 7.56 ng/mL (>3.99)
[2020-02-11 09:57] LABS: % Iron Saturation 18 % (15-55); Iron 31 ug/dL (50-212); Total Iron Binding Capacity 175 mcg/dL (250-450); Transferrin 125 mg/dL (203-362); Unsaturated Iron Binding < 160 ug/dL
[2020-02-11 16:32] LABS: Corrected Retic Count 0.5 % (0.5-1.5); Hematocrit 24 % (42-52); Hematocrit for Retic CNT 24 % (42-52); Hemoglobin 7.9 g/dL (14.0-18.0); Immature Retic Fraction 0.54; RBC Retic Count 2.89 10^6/uL (4.18-5.48)
[2020-02-11] MEDS: Senna TAB 8.6 mg TAB PO SCH (22:27)
[2020-02-12 05:19] LABS: ABS Basophils 0.1 10^3/ul (0-0.2); ABS Eosinophils 0.3 10^3/ul (0-0.6); ABS Lymphocytes 1.9 10^3/ul (1.0-4.8); ABS Monocytes 0.8 10^3/ul (0-0.8); ABS Neutrophils 5.6 10^3/ul (1.5-7.7); Eosinophil % 3.6 %; Hematocrit 23 % (42-52); Hemoglobin 7.8 g/dL (14.0-18.0); Lymphocyte % 22.2 %; Mean Corpuscular HGB Conc 34 g/dL (31-36); Mean Corpuscular Hemoglobin 28 pg (27-31); Mean Corpuscular Volume 82 fL (80-94); Platelet Count 549 10^3/uL (150-450); Red Blood Count 2.83 10^6 /uL (4.18-5.48); Red Cell Distribution Width 18 % (10-15); White Blood Count 8.7 10^3/uL (3.5-10.8)
[2020-02-12 05:37] LABS: BUN/Creatinine Ratio 22.1 (8-20); Calcium 8.7 mg/dL (8.6-10.3); EGFR African American 140.7 (>60); EGFR Non-African American 116.3 (>60); Magnesium 1.5 mg/dL (1.9-2.7); Potassium 3.3 mmol/L (3.5-5.0)
[2020-02-12 07:19] LABS: INR 1.47 (0.82-1.09)
[2020-02-12] MEDS: Polyethylene Glycol 3350 17 GM PACKET PO SCH (08:50)
[2020-02-12] MEDS ORDERED: Potassium Chlor 20 meq TAB.ER PO ONE (09:44)
[2020-02-12] MEDS ORDERED: Heparin 5000 UNITS/ML 1 mL VIAL IV SCH (10:00)
[2020-02-12] MEDS ORDERED: Magnesium Sulfate 2 gm BAG 2 GM/50 ML BAG IVPB ONE (10:00)
[2020-02-12] MEDS ORDERED: fentaNYL 100 mcg/2 ml 50 MCG/ML VIAL ONE (13:38)
[2020-02-12] MEDS ORDERED: Morphine 10 MG/ML VIAL (1 ml) ONE (13:38)
[2020-02-12] MEDS ORDERED: Midazolam 10 mg/10 ml VIAL 1 mg/ml 10 ml VIAL (10 mg) ONE (13:38)
[2020-02-12] MEDS: Heparin DRIP 25,000 UNITS BAG 25,000 UNITS/500 ML BAG IV SCH (16:37)
[2020-02-12 19:36] LABS: Soluble Transferrin Receptor 3.3 mg/L (1.8 - 4.6)
[2020-02-12] MEDS: Senna TAB 8.6 mg TAB PO SCH (21:12)
[2020-02-13 04:14] LABS: ABS Basophils 0.1 10^3/ul (0-0.2); ABS Eosinophils 0.3 10^3/ul (0-0.6); ABS Lymphocytes 1.8 10^3/ul (1.0-4.8); ABS Monocytes 0.7 10^3/ul (0-0.8); ABS Neutrophils 6.3 10^3/ul (1.5-7.7); Eosinophil % 3.3 %; Hematocrit 22 % (42-52); Hemoglobin 7.4 g/dL (14.0-18.0); Lymphocyte % 19.3 %; Mean Corpuscular HGB Conc 34 g/dL (31-36); Mean Corpuscular Hemoglobin 28 pg (27-31); Mean Corpuscular Volume 81 fL (80-94); Mean Platelet Volume 7.8 fL (7.4-10.4); Platelet Count 563 10^3/uL (150-450); Red Blood Count 2.67 10^6 /uL (4.18-5.48); Red Cell Distribution Width 18 % (10-15); White Blood Count 9.1 10^3/uL (3.5-10.8)
[2020-02-13 08:39] LABS: Anion Gap 6 mmol/L (2-11); BUN/Creatinine Ratio 16.4 (8-20); Blood Urea Nitrogen 12 mg/dL (6-24); CO2 Carbon Dioxide 29 mmol/L (22-32); Calcium 8.3 mg/dL (8.6-10.3); Chloride 102 mmol/L (101-111); EGFR African American 129.7 (>60); EGFR Non-African American 107.2 (>60); Glucose 98 mg/dL (70-100); Magnesium 1.7 mg/dL (1.9-2.7); Potassium 3.7 mmol/L (3.5-5.0); Sodium 137 mmol/L (135-145)
[2020-02-13] MEDS: Polyethylene Glycol 3350 17 GM PACKET PO SCH (08:40)
[2020-02-13 10:37] LABS: % Iron Saturation 11 % (15-55); Iron 22 ug/dL (50-212); Total Iron Binding Capacity 196 mcg/dL (250-450); Transferrin 140 mg/dL (203-362); Unsaturated Iron Binding < 181 ug/dL
[2020-02-13 10:57] LABS: Ferritin 131.5 ng/mL (24-336)
[2020-02-13 11:02] LABS: Folate 6.38 ng/mL (>3.99)
[2020-02-13 11:04] LABS: Vitamin B12 375 pg/mL (180-914)
[2020-02-13] MEDS: Heparin DRIP 25,000 UNITS BAG 25,000 UNITS/500 ML BAG IV SCH (12:04)
[2020-02-13 13:13] LABS: Beta 2 Glycoprotein IgG <9.4 U/mL
[2020-02-13 13:43] LABS: Phospholipid Ab IgG < 9.4 GPL; Phospholipid Ab IgM, S < 9.4 MPL
[2020-02-13] MEDS ORDERED: PEG 3000 GI LAVAGE 1 GALLON PO ONE (14:18)
[2020-02-13] MEDS ORDERED: Magnesium CITRATE LIQ 300 ML BTL PO ONE (17:00)
[2020-02-13 20:08] LABS: Hematocrit 22 % (42-52); Hemoglobin 7.3 g/dL (14.0-18.0)
[2020-02-13] MEDS: Senna TAB 8.6 mg TAB PO SCH (20:36)
[2020-02-14 03:45] LABS: ABS Basophils 0.1 10^3/ul (0-0.2); ABS Eosinophils 0.3 10^3/ul (0-0.6); ABS Lymphocytes 1.9 10^3/ul (1.0-4.8); ABS Monocytes 0.8 10^3/ul (0-0.8); ABS Neutrophils 8.6 10^3/ul (1.5-7.7); Eosinophil % 2.3 %; Hematocrit 23 % (42-52); Hemoglobin 7.5 g/dL (14.0-18.0); Lymphocyte % 16.1 %; Mean Corpuscular HGB Conc 33 g/dL (31-36); Mean Corpuscular Hemoglobin 27 pg (27-31); Mean Corpuscular Volume 82 fL (80-94); Mean Platelet Volume 7.8 fL (7.4-10.4); Platelet Count 613 10^3/uL (150-450); Red Blood Count 2.79 10^6 /uL (4.18-5.48); Red Cell Distribution Width 18 % (10-15); White Blood Count 11.5 10^3/uL (3.5-10.8)
[2020-02-14 04:02] LABS: BUN/Creatinine Ratio 17.1 (8-20); Calcium 8.3 mg/dL (8.6-10.3); EGFR African American 136.1 (>60); EGFR Non-African American 112.5 (>60); Potassium 3.6 mmol/L (3.5-5.0)
[2020-02-14] MEDS: Heparin DRIP 25,000 UNITS BAG 25,000 UNITS/500 ML BAG IV SCH (09:39)
[2020-02-14] MEDS: Polyethylene Glycol 3350 17 GM PACKET PO SCH (10:10)
[2020-02-14] MEDS ORDERED: NS 0.9% 1000 ml BAG 1,000 ML IV SCH (11:15)
[2020-02-14] MEDS: Senna TAB 8.6 mg TAB PO SCH (22:23)
[2020-02-15 04:17] LABS: ABS Basophils 0.1 10^3/ul (0-0.2); ABS Eosinophils 0.2 10^3/ul (0-0.6); ABS Lymphocytes 1.7 10^3/ul (1.0-4.8); ABS Monocytes 0.7 10^3/ul (0-0.8); ABS Neutrophils 7.3 10^3/ul (1.5-7.7); Eosinophil % 2.2 %; Hematocrit 23 % (42-52); Hemoglobin 7.4 g/dL (14.0-18.0); Lymphocyte % 16.9 %; Mean Corpuscular HGB Conc 33 g/dL (31-36); Mean Corpuscular Hemoglobin 27 pg (27-31); Mean Corpuscular Volume 82 fL (80-94); Mean Platelet Volume 7.8 fL (7.4-10.4); Platelet Count 564 10^3/uL (150-450); Red Blood Count 2.74 10^6 /uL (4.18-5.48); Red Cell Distribution Width 19 % (10-15)
[2020-02-15] MEDS: Heparin DRIP 25,000 UNITS BAG 25,000 UNITS/500 ML BAG IV SCH (05:12)
[2020-02-15] MEDS: Magnesium Sulfate 2 gm BAG 2 GM/50 ML BAG IVPB ONE ×2 (08:47→10:49)
[2020-02-15] MEDS: Polyethylene Glycol 3350 17 GM PACKET PO SCH (08:50)
[2020-02-15] MEDS: Senna TAB 8.6 mg TAB PO SCH (23:25)
[2020-02-16] MEDS: Polyethylene Glycol 3350 17 GM PACKET PO SCH ×2 (01:41→06:34)
[2020-02-16] MEDS: Heparin DRIP 25,000 UNITS BAG 25,000 UNITS/500 ML BAG IV SCH ×2 (01:42→21:20)
[2020-02-16 05:11] LABS: ABS Basophils 0.1 10^3/ul (0-0.2); ABS Eosinophils 0.3 10^3/ul (0-0.6); ABS Lymphocytes 2.2 10^3/ul (1.0-4.8); ABS Monocytes 0.8 10^3/ul (0-0.8); ABS Neutrophils 5.5 10^3/ul (1.5-7.7); Eosinophil % 3.1 %; Hematocrit 21 % (42-52); Hemoglobin 7.3 g/dL (14.0-18.0); Lymphocyte % 24.7 %; Mean Corpuscular HGB Conc 34 g/dL (31-36); Mean Corpuscular Hemoglobin 28 pg (27-31); Mean Corpuscular Volume 82 fL (80-94); Mean Platelet Volume 7.7 fL (7.4-10.4); Platelet Count 519 10^3/uL (150-450); Red Blood Count 2.62 10^6 /uL (4.18-5.48); Red Cell Distribution Width 19 % (10-15); White Blood Count 8.9 10^3/uL (3.5-10.8)
[2020-02-16 05:44] LABS: Albumin 2.5 g/dL (3.2-5.2); Albumin/Globulin Ratio 0.7 (1-3); BUN/Creatinine Ratio 11.9 (8-20); Calcium 8.2 mg/dL (8.6-10.3); EGFR African American 143.2 (>60); EGFR Non-African American 118.3 (>60); Globulin 3.4 g/dL (2-4); Potassium 3.7 mmol/L (3.5-5.0); Total Bilirubin 0.3 mg/dL (0.2-1.0); Total Protein 5.9 g/dL (6.4-8.9)
[2020-02-16] MEDS: Magnesium Hydroxide LIQ 30 ML UDC PO ONE ×2 (11:15→13:06)
[2020-02-16] MEDS ORDERED: PEG 3000 GI LAVAGE 1 GALLON PO ONE (15:00)
[2020-02-16 15:59] LABS: Hematocrit 26 % (42-52); Hemoglobin 8.6 g/dL (14.0-18.0)
[2020-02-16] MEDS: Senna TAB 8.6 mg TAB PO SCH (21:37)
[2020-02-17 05:17] LABS: ABS Basophils 0.1 10^3/ul (0-0.2); ABS Eosinophils 0.2 10^3/ul (0-0.6); ABS Lymphocytes 2.1 10^3/ul (1.0-4.8); ABS Monocytes 0.9 10^3/ul (0-0.8); ABS Neutrophils 6.3 10^3/ul (1.5-7.7); Eosinophil % 2.4 %; Hematocrit 23 % (42-52); Hemoglobin 7.9 g/dL (14.0-18.0); Lymphocyte % 21.6 %; Mean Corpuscular HGB Conc 34 g/dL (31-36); Mean Corpuscular Hemoglobin 29 pg (27-31); Mean Corpuscular Volume 84 fL (80-94); Mean Platelet Volume 7.7 fL (7.4-10.4); Platelet Count 563 10^3/uL (150-450); Red Blood Count 2.76 10^6 /uL (4.18-5.48); Red Cell Distribution Width 20 % (10-15); White Blood Count 9.5 10^3/uL (3.5-10.8)
[2020-02-17] MEDS ORDERED: PEG 3000 GI LAVAGE 1 GALLON PO ONE (11:37)
[2020-02-17 14:51] LABS: DRVVT Screen Ratio 1.18 ratio (<1.20); LAC APTT 55 sec (25 - 37); LAC INR 1.4 (0.9-1.1); Prothrombin Time(LAC) 15.2 sec (9.4 - 12.5)
[2020-02-17 14:58] LABS: LAC PT Mix 1:1 12.6 sec (9.4 - 12.5)
[2020-02-17 15:03] LABS: Thrombin Time (Bovine), P 198.4 sec
[2020-02-17 16:17] LABS: Fibrinogen, Clauss, P 508 mg/dL (200 - 500)
[2020-02-17] MEDS: Heparin DRIP 25,000 UNITS BAG 25,000 UNITS/500 ML BAG IV SCH (23:03)
[2020-02-17] MEDS: Senna TAB 8.6 mg TAB PO SCH (23:09)
[2020-02-18 05:44] LABS: Hematocrit 22 % (42-52); Hemoglobin 7.2 g/dL (14.0-18.0)
[2020-02-18 06:07] LABS: CRP High Sensitivity 46.57 mg/L (<2.00); EGFR African American 133.9 (>60); EGFR Non-African American 110.7 (>60)
[2020-02-18] MEDS ORDERED: Iron Sucrose 200 MG in NS 0.9% 100 ml BAG 100 ML IVPB ONE (09:00)
[2020-02-18 09:45] LABS: Erythrocyte Sed Rate 73 mm/Hr (0-19)
[2020-02-18] MEDS: Senna TAB 8.6 mg TAB PO SCH (20:51)
[2020-02-19] MEDS: Enoxaparin 80 MG/0.8 ML SYR SUBCUT SCH ×2 (00:02→10:16)
[2020-02-19 08:45] LABS: Hematocrit 24 % (42-52); Hemoglobin 7.7 g/dL (14.0-18.0)
[2020-02-19] MEDS ORDERED: Iron Sucrose 200 MG in NS 0.9% 100 ml BAG 100 ML IVPB SCH (12:00)
[2020-02-19 16:21] VITALS: BP 133/64
[2020-02-20 15:00] LABS: Copper Level 0.74 mcg/mL (0.75-1.45)
[2020-02-22 09:25] LABS: Albumin 39 %; Albumin/Globulin Ratio 0.65 %; Gamma Globulin 19 %; Total Protein(PEP) Urine 29 mg/dL
[2020-02-24 16:48] LABS: Albumin/Globulin Ratio 0.59; Gamma Globulin 1.3 g/dL (0.6-1.6); Total Protein(PEP) 5.5 g/dL (6.3 - 7.9)
== END 2020-02-19 12:00 | disposition swing bed (61) | DRG 175 ==
LOC: MEDTELE 07:05 → ED 07:05 → MEDTELE 11:23 → ICU 02-11 13:24 → MEDTELE 02-12 14:14 → AA 02-14 14:02 → MED 02-14 14:02
PROVIDERS: ADMIT Hospitalist; ATTEND Internal Medicine

== ENCOUNTER 2020-02-11 13:24 | Inpatient (IN) ==
[2020-02-19] MEDS: Enoxaparin 40 MG/0.4 ML SYR SUBCUT SCH (21:54)
[2020-02-20 07:07] LABS: INR 1.54 (0.82-1.09)
[2020-02-20] MEDS: Iron Sucrose 200 MG in NS 0.9% 100 ml BAG 100 ML IVPB SCH (09:45)
[2020-02-20] MEDS: Enoxaparin 40 MG/0.4 ML SYR SUBCUT SCH (09:46)
[2020-02-20] MEDS: Enoxaparin 80 MG/0.8 ML SYR SUBCUT SCH (20:01)
[2020-02-20] MEDS: Triamcinolone 0.025% OINT 15 GM TUBE TOPICAL SCH (20:12)
[2020-02-21 07:07] LABS: INR 1.97 (0.82-1.09)
[2020-02-21] MEDS: Enoxaparin 80 MG/0.8 ML SYR SUBCUT SCH ×2 (09:12→21:41)
[2020-02-21] MEDS: Triamcinolone 0.025% OINT 15 GM TUBE TOPICAL SCH ×2 (09:14→21:43)
[2020-02-21] MEDS: Iron Sucrose 200 MG in NS 0.9% 100 ml BAG 100 ML IVPB SCH (09:14)
[2020-02-21] MEDS: Warfarin DAILY REMINDER **NOTE FOLLOW UP SCH (17:04)
[2020-02-22 06:34] LABS: INR 2.12 (0.82-1.09)
[2020-02-22] MEDS: Iron Sucrose 200 MG in NS 0.9% 100 ml BAG 100 ML IVPB SCH (09:08)
[2020-02-22] MEDS: Enoxaparin 80 MG/0.8 ML SYR SUBCUT SCH ×2 (09:11→21:01)
[2020-02-22] MEDS: Triamcinolone 0.025% OINT 15 GM TUBE TOPICAL SCH ×2 (09:12→21:04)
[2020-02-22] MEDS: Warfarin DAILY REMINDER **NOTE FOLLOW UP SCH (18:08)
[2020-02-22] MEDS: Senna TAB 8.6 mg TAB PO PRN (21:02)
[2020-02-23 10:10] LABS: INR 2.01 (0.82-1.09)
[2020-02-23] MEDS: Enoxaparin 80 MG/0.8 ML SYR SUBCUT SCH (10:42)
[2020-02-23] MEDS: Triamcinolone 0.025% OINT 15 GM TUBE TOPICAL SCH ×3 (10:48→20:45)
[2020-02-23] MEDS: Senna TAB 8.6 mg TAB PO PRN (14:09)
[2020-02-23] MEDS: Warfarin DAILY REMINDER **NOTE FOLLOW UP SCH (16:51)
[2020-02-24] MEDS: Triamcinolone 0.025% OINT 15 GM TUBE TOPICAL SCH (10:36)
[2020-02-24] MEDS: Warfarin DAILY REMINDER **NOTE FOLLOW UP SCH (16:02)
[2020-02-25] MEDS: Triamcinolone 0.025% OINT 15 GM TUBE TOPICAL SCH ×3 (02:42→21:29)
[2020-02-25 09:51] LABS: INR 3.13 (0.82-1.09)
[2020-02-25] MEDS: Warfarin DAILY REMINDER **NOTE FOLLOW UP SCH (18:19)
[2020-02-26 06:49] LABS: Hematocrit 25 % (42-52); Hemoglobin 8.5 g/dL (14.0-18.0); Mean Platelet Volume 7.9 fL (7.4-10.4); Platelet Count 423 10^3/uL (150-450)
[2020-02-26 06:55] LABS: INR 3.47 (0.82-1.09)
[2020-02-26 08:29] VITALS: BP 108/67
[2020-02-26] MEDS: Triamcinolone 0.025% OINT 15 GM TUBE TOPICAL SCH (08:44)
== END 2020-02-26 12:00 | DRG 175 ==
LOC: MED 02-19 13:15 → INTOOBSV 02-19 13:15
PROVIDERS: ADMIT Internal Medicine; ATTEND Internal Medicine

== ENCOUNTER 2020-08-06 12:00 | Inpatient (IN) ==
[2020-08-06] MEDS ORDERED: Piperacillin/Tazobac ADVAN 3.375 GM in NS 0.9% 100 ml BAG 100 ML IVPB ONE (12:20)
[2020-08-06] MEDS ORDERED: NS 0.9% 1000 ml BAG 1,000 ML IV ONE ×2 (12:29→12:56)
[2020-08-06 12:42] LABS: Hematocrit 31 % (42-52); Hemoglobin 10.5 g/dL (14.0-18.0); Mean Corpuscular HGB Conc 33 g/dL (31-36); Mean Corpuscular Hemoglobin 31 pg (27-31); Mean Corpuscular Volume 91 fL (80-94); Mean Platelet Volume 9.4 fL (7.4-10.4); Platelet Count 280 10^3/uL (150-450); Red Blood Count 3.43 10^6 /uL (4.18-5.48); Red Cell Distribution Width 18 % (10-15); White Blood Count 12.3 10^3/uL (3.5-10.8)
[2020-08-06 12:57] LABS: ALT 31 U/L (7-52); Albumin 2.7 g/dL (3.2-5.2); Albumin/Globulin Ratio 0.8 (1-3); Alkaline Phosphatase 92 U/L (34-104); BUN/Creatinine Ratio 31.7 (8-20); Blood Urea Nitrogen 44 mg/dL (6-24); C Reactive Protein 248.01 mg/L (<8.01); CO2 Carbon Dioxide 23 mmol/L (22-32); Calcium 8.6 mg/dL (8.6-10.3); Chloride 107 mmol/L (101-111); EGFR African American 61.5 (>60); EGFR Non-African American 50.8 (>60); Globulin 3.5 g/dL (2-4); Glucose 147 mg/dL (70-100); Sodium 138 mmol/L (135-145); Total Protein 6.2 g/dL (6.4-8.9)
[2020-08-06] MEDS ORDERED: NS 0.9% 1000 ml BAG 500 ML IV ONE (12:57)
[2020-08-06 12:58] LABS: Troponin I 0.02 ng/mL (<0.03)
[2020-08-06] MEDS ORDERED: Vancomycin 1,250 MG in NS 0.9% 250 ml 250 ML IVPB SCH (13:00)
[2020-08-06 13:02] LABS: Urine Appearance Cloudy; Urine Bilirubin Negative (Negative); Urine Blood 1+ (Negative); Urine Color Yellow; Urine Glucose Negative (Negative); Urine Ketones Trace (Negative); Urine Nitrite Negative (Negative); Urine Protein 1+(30 mg/dL) (Negative); Urine Specific Gravity 1.017 (1.010-1.030); Urine Urobilinogen Negative (Negative)
[2020-08-06 13:02] LABS: Activated Partial Thrombo Time 32.1 seconds (26.0-38.0); INR 1.44 (0.82-1.09)
[2020-08-06 13:10] LABS: Urine Bacteria Absent (Absent); Urine Red Blood Cell 3+(>10/hpf) (Absent); Urine Squamous Epithelial Cell Present (Absent); Urine White Blood Cell 3+(>20/hpf) (Absent)
[2020-08-06 13:29] LABS: Anion Gap 8 mmol/L (2-11)
[2020-08-06 13:32] LABS: Influenza A Molecular Negative (Negative); Influenza B Molecular Negative (Negative)
[2020-08-06 13:32] LABS: ABS Lymphocytes 0.7 10^3/ul (1.0-4.8); ABS Monocytes 0.5 10^3/ul (0-0.8); Eosinophil % 0.1 %; Nucleated Red Blood Cells % 0.1
[2020-08-06] MEDS ORDERED: Norepinephrine 16MCG/ML IVPRE 4,000 MCG/250 ML BAG IV SCH ×2 (14:00→15:24)
[2020-08-06] MEDS ORDERED: NS 0.9% 1000 ml BAG 1,000 ML IV SCH (15:30)
[2020-08-06] MEDS ORDERED: Vancomycin per Pharmacy 1 EA NOTE FOLLOW UP SCH (16:00)
[2020-08-06] MEDS ORDERED: Zosyn per Pharmacy NOTE FOLLOW UP SCH (16:00)
[2020-08-06 16:37] LABS: Potassium Redraw 3.7 mmol/L (3.5-5.0)
[2020-08-06] MEDS: ZOSYN 3.375 GM Q8H per EXTENDED INFUSION IV SCH (18:28)
[2020-08-06] MEDS: Pantoprazole VIAL 40 MG VIAL IV SCH (20:05)
[2020-08-06] MEDS: Enoxaparin 80 MG/0.8 ML SYR SUBCUT SCH (20:05)
[2020-08-06 21:46] LABS: Urine Appearance Turbid; Urine Bilirubin Negative (Negative); Urine Blood 3+ (Negative); Urine Color Yellow; Urine Glucose Negative (Negative); Urine Ketones Negative (Negative); Urine Nitrite Negative (Negative); Urine Protein 2+(100 mg/dL) (Negative); Urine Specific Gravity 1.016 (1.010-1.030); Urine Urobilinogen Negative (Negative)
[2020-08-06 21:51] LABS: Urine Bacteria 1+ (Absent); Urine Red Blood Cell 1+(3-5/hpf) (Absent); Urine White Blood Cell 3+(>20/hpf) (Absent)
[2020-08-07] MEDS: ZOSYN 3.375 GM Q8H per EXTENDED INFUSION IV SCH ×4 (00:30→17:55)
[2020-08-07] MEDS: Vancomycin 750 MG in NS 0.9% 250 ML IVPB SCH ×2 (01:44→13:44)
[2020-08-07] MEDS: Enoxaparin 80 MG/0.8 ML SYR SUBCUT SCH ×2 (02:59→21:07)
[2020-08-07 03:12] LABS: ABS Lymphocytes 0.8 10^3/ul (1.0-4.8); ABS Monocytes 0.4 10^3/ul (0-0.8); ABS Neutrophils 9.9 10^3/ul (1.5-7.7); Eosinophil % 0.1 %; Hematocrit 26 % (42-52); Hemoglobin 8.3 g/dL (14.0-18.0); Lymphocyte % 6.9 %; Mean Corpuscular HGB Conc 32 g/dL (31-36); Mean Corpuscular Hemoglobin 30 pg (27-31); Mean Corpuscular Volume 94 fL (80-94); Mean Platelet Volume 9.1 fL (7.4-10.4); Platelet Count 213 10^3/uL (150-450); Red Blood Count 2.72 10^6 /uL (4.18-5.48); Red Cell Distribution Width 18 % (10-15); White Blood Count 11.1 10^3/uL (3.5-10.8)
[2020-08-07] MEDS ORDERED: Norepinephrine 16MCG/ML IVPRE 4,000 MCG/250 ML BAG IV SCH (03:23)
[2020-08-07] MEDS ORDERED: NS 0.9% 1000 ml BAG 1,000 ML IV SCH (03:23)
[2020-08-07] MEDS ORDERED: Norepinephrine 16MCG/ML IVPRE 4,000 MCG/250 ML BAG IV ONE (03:24)
[2020-08-07 03:27] LABS: Albumin/Globulin Ratio 0.7 (1-3); BUN/Creatinine Ratio 30.1 (8-20); Calcium 6.5 mg/dL (8.6-10.3); EGFR African American 78.1 (>60); EGFR Non-African American 64.5 (>60); Globulin 2.7 g/dL (2-4); Potassium 2.8 mmol/L (3.5-5.0); Total Bilirubin 0.4 mg/dL (0.2-1.0); Total Protein 4.7 g/dL (6.4-8.9)
[2020-08-07] MEDS ORDERED: methylPREDNISolone SOD 40 mg/ml 1 ml VIAL IV SCH (09:00)
[2020-08-07 09:45] LABS: BUN/Creatinine Ratio 28.6 (8-20); Calcium 8.4 mg/dL (8.6-10.3); EGFR Non-African American 50.4 (>60); Potassium 3.4 mmol/L (3.5-5.0)
[2020-08-07] MEDS: KCL 20 MEQ/100 ML IVPREMIX 20 MEQ/100 ML BAG IV SCH ×2 (09:46→11:44)
[2020-08-07] MEDS ORDERED: NS 0.45% 1000 ml BAG 1,000 ML IV SCH (11:00)
[2020-08-07] MEDS ORDERED: Hydrocortisone INJ 100 MG/2ML 2 ML VIAL ONE (13:20)
[2020-08-07] MEDS ORDERED: Hydrocortisone INJ 100 MG/2ML 2 ML VIAL IV ONE (13:30)
[2020-08-07 13:56] LABS: BUN/Creatinine Ratio 30.6 (8-20); Calcium 7.7 mg/dL (8.6-10.3); EGFR African American 70.1 (>60); Potassium 3.8 mmol/L (3.5-5.0)
[2020-08-07] MEDS ORDERED: Anidulafungin 200 MG in NS 0.9% 250 ml 200 ML IVPB ONE (16:00)
[2020-08-07] MEDS: Anidulafungin 100 MG in NS 0.9% 100 ml BAG 100 ML IVPB SCH (17:55)
[2020-08-07] MEDS ORDERED: D5W 1/2 NS 1000 ml BAG 1,000 ML IV SCH (19:00)
[2020-08-07] MEDS: Pantoprazole VIAL 40 MG VIAL IV SCH (21:07)
[2020-08-07] MEDS: Hydrocortisone INJ 100 MG/2ML 2 ML VIAL IV SCH (21:07)
[2020-08-08] MEDS: ZOSYN 3.375 GM Q8H per EXTENDED INFUSION IV SCH ×3 (00:53→16:29)
[2020-08-08] MEDS: Vancomycin 750 MG in NS 0.9% 250 ML IVPB SCH (01:40)
[2020-08-08 04:44] LABS: Vancomycin Trough 20.8 mcg/mL
[2020-08-08] MEDS: Hydrocortisone INJ 100 MG/2ML 2 ML VIAL IV SCH ×3 (08:09→20:26)
[2020-08-08] MEDS: Phenylephrine 2.5% OPHTH SOL 2 ml BTL BOTH EYES SCH ×6 (08:10→09:35)
[2020-08-08] MEDS: Tropicamide 1% OPTH.SOL BTL BOTH EYES SCH ×7 (08:10→09:35)
[2020-08-08] MEDS: Enoxaparin 80 MG/0.8 ML SYR SUBCUT SCH ×2 (08:12→20:26)
[2020-08-08 08:31] LABS: ABS Lymphocytes 1.3 10^3/ul (1.0-4.8); ABS Monocytes 0.5 10^3/ul (0-0.8); ABS Neutrophils 9.2 10^3/ul (1.5-7.7); Hematocrit 27 % (42-52); Lymphocyte % 11.6 %; Mean Corpuscular HGB Conc 33 g/dL (31-36); Mean Corpuscular Hemoglobin 31 pg (27-31); Mean Corpuscular Volume 93 fL (80-94); Mean Platelet Volume 8.9 fL (7.4-10.4); Platelet Count 256 10^3/uL (150-450); Red Blood Count 2.96 10^6 /uL (4.18-5.48); Red Cell Distribution Width 19 % (10-15); White Blood Count 11.1 10^3/uL (3.5-10.8)
[2020-08-08 09:34] LABS: BUN/Creatinine Ratio 33.6 (8-20); Calcium 7.5 mg/dL (8.6-10.3); EGFR African American 71.5 (>60); EGFR Non-African American 59.1 (>60); Magnesium 1.8 mg/dL (1.9-2.7); Potassium 3.3 mmol/L (3.5-5.0)
[2020-08-08 09:49] LABS: Calcium 8.4 mg/dL (8.6-10.3); Magnesium 2.1 mg/dL (1.9-2.7)
[2020-08-08 09:55] LABS: BUN/Creatinine Ratio 34.1 (8-20); EGFR African American 65.3 (>60); EGFR Non-African American 53.9 (>60)
[2020-08-08] MEDS ORDERED: Dextrose 50% Syringe 50 ml 25 GM/50 ML SYRINGE IV PUSH PRN (10:00)
[2020-08-08] MEDS: KCL 10 MEQ/50 ML IVPREMIX 10 MEQ/50 ML BAG IV SCH ×3 (10:41→13:05)
[2020-08-08] MEDS ORDERED: Magnesium Sulfate IV 3 GM in NS 0.9% 100 ml BAG 100 ML IVPB ONE (11:00)
[2020-08-08] MEDS ORDERED: Vancomycin Trough Check NOTE FOLLOW UP ONE (13:00)
[2020-08-08] MEDS ORDERED: Succinylcholine 200 mg VIAL 20 mg/ml 10 ml VIAL (200 mg) ONE (13:32)
[2020-08-08] MEDS: Anidulafungin 100 MG in NS 0.9% 100 ml BAG 100 ML IVPB SCH (17:41)
[2020-08-08] MEDS: Pantoprazole VIAL 40 MG VIAL IV SCH (20:26)
[2020-08-09] MEDS: ZOSYN 3.375 GM Q8H per EXTENDED INFUSION IV SCH ×4 (00:25→23:54)
[2020-08-09 04:23] LABS: Hematocrit 28 % (42-52); Hemoglobin 8.9 g/dL (14.0-18.0); Mean Corpuscular HGB Conc 33 g/dL (31-36); Mean Corpuscular Hemoglobin 30 pg (27-31); Mean Corpuscular Volume 93 fL (80-94); Mean Platelet Volume 9.3 fL (7.4-10.4); Platelet Count 309 10^3/uL (150-450); Red Blood Count 2.96 10^6 /uL (4.18-5.48); Red Cell Distribution Width 18 % (10-15); White Blood Count 15.8 10^3/uL (3.5-10.8)
[2020-08-09 05:14] LABS: Calcium 8.2 mg/dL (8.6-10.3); EGFR African American 69.5 (>60); EGFR Non-African American 57.4 (>60); Potassium 3.3 mmol/L (3.5-5.0)
[2020-08-09] MEDS: Hydrocortisone INJ 100 MG/2ML 2 ML VIAL IV SCH ×2 (05:21→17:52)
[2020-08-09 06:27] LABS: ABS Lymphocytes 0.9 10^3/ul (1.0-4.8); ABS Monocytes 0.6 10^3/ul (0-0.8); ABS Neutrophils 14.2 10^3/ul (1.5-7.7); Lymphocyte % 5.7 %
[2020-08-09 07:52] LABS: Magnesium 2.4 mg/dL (1.9-2.7)
[2020-08-09] MEDS ORDERED: Perflutren Lipid Microsphere 3 ML VIAL ONE (08:55)
[2020-08-09] MEDS: Enoxaparin 80 MG/0.8 ML SYR SUBCUT SCH ×2 (09:13→20:27)
[2020-08-09] MEDS: KCL 20 MEQ/100 ML IVPREMIX 20 MEQ/100 ML BAG IV SCH ×3 (09:47→13:40)
[2020-08-09] MEDS: Anidulafungin 100 MG in NS 0.9% 100 ml BAG 100 ML IVPB SCH (17:22)
[2020-08-09] MEDS: Pantoprazole VIAL 40 MG VIAL IV SCH (20:27)
[2020-08-10 03:28] LABS: ABS Monocytes 0.6 10^3/ul (0-0.8); ABS Neutrophils 9.9 10^3/ul (1.5-7.7); Hematocrit 29 % (42-52); Hemoglobin 9.5 g/dL (14.0-18.0); Mean Corpuscular HGB Conc 33 g/dL (31-36); Mean Corpuscular Hemoglobin 30 pg (27-31); Mean Corpuscular Volume 92 fL (80-94); Mean Platelet Volume 9.3 fL (7.4-10.4); Platelet Count 301 10^3/uL (150-450); Red Cell Distribution Width 18 % (10-15); White Blood Count 11.5 10^3/uL (3.5-10.8)
[2020-08-10 03:44] LABS: BUN/Creatinine Ratio 26.5 (8-20); Calcium 8.3 mg/dL (8.6-10.3); EGFR African American 78.1 (>60); EGFR Non-African American 64.5 (>60); Potassium 3.5 mmol/L (3.5-5.0)
[2020-08-10] MEDS: Hydrocortisone INJ 100 MG/2ML 2 ML VIAL IV SCH ×2 (06:20→17:52)
[2020-08-10] MEDS: ZOSYN 3.375 GM Q8H per EXTENDED INFUSION IV SCH (08:32)
[2020-08-10] MEDS: Enoxaparin 80 MG/0.8 ML SYR SUBCUT SCH ×2 (09:03→22:33)
[2020-08-10] MEDS: Fluconazole 400 MG IVPREMIX 400 MG/200 ML BAG IVPB SCH (17:52)
[2020-08-10] MEDS: Pantoprazole VIAL 40 MG VIAL IV SCH (19:53)
[2020-08-11] MEDS ORDERED: Midazolam 5 mg/5 ml VIAL 1 mg/ml 5 ml VIAL (5 mg) ONE (07:39)
[2020-08-11] MEDS ORDERED: fentaNYL 100 mcg/2 ml 50 MCG/ML VIAL ONE (07:40)
[2020-08-11] MEDS ORDERED: Naloxone 0.4 mg VIAL 0.4 mg/ml 1 ml VIAL ONE (07:40)
[2020-08-11] MEDS ORDERED: Flumazenil 0.5 mg/5 ml 0.1 MG/ML 5 ml VIAL ONE (07:40)
[2020-08-11] MEDS: Enoxaparin 80 MG/0.8 ML SYR SUBCUT SCH ×3 (11:29→19:48)
[2020-08-11] MEDS ORDERED: Lactated Ringers 500 ml BAG 500 ML IV ONE (12:30)
[2020-08-11] MEDS ORDERED: Iohexol 300 (CONTRAST) 10 ML SDV IV ONE (16:26)
[2020-08-11] MEDS: Pantoprazole VIAL 40 MG VIAL IV SCH (19:37)
[2020-08-11] MEDS: Fluconazole 400 MG IVPREMIX 400 MG/200 ML BAG IVPB SCH (19:38)
[2020-08-12 08:40] LABS: ABS Lymphocytes 0.7 10^3/ul (1.0-4.8); ABS Monocytes 0.3 10^3/ul (0-0.8); ABS Neutrophils 11.8 10^3/ul (1.5-7.7); Hematocrit 26 % (42-52); Hemoglobin 8.5 g/dL (14.0-18.0); Lymphocyte % 5.6 %; Mean Corpuscular HGB Conc 33 g/dL (31-36); Mean Corpuscular Hemoglobin 30 pg (27-31); Mean Corpuscular Volume 91 fL (80-94); Mean Platelet Volume 8.9 fL (7.4-10.4); Platelet Count 212 10^3/uL (150-450); Red Blood Count 2.86 10^6 /uL (4.18-5.48); Red Cell Distribution Width 18 % (10-15); White Blood Count 12.8 10^3/uL (3.5-10.8)
[2020-08-12] MEDS: Enoxaparin 80 MG/0.8 ML SYR SUBCUT SCH (10:29)
[2020-08-12] MEDS: Fluconazole 400 MG IVPREMIX 400 MG/200 ML BAG IVPB SCH (17:35)
[2020-08-12] MEDS: Pantoprazole VIAL 40 MG VIAL IV SCH (19:31)
[2020-08-13 05:43] LABS: ABS Lymphocytes 0.9 10^3/ul (1.0-4.8); ABS Monocytes 0.3 10^3/ul (0-0.8); ABS Neutrophils 8.1 10^3/ul (1.5-7.7); Eosinophil % 0.2 %; Hematocrit 29 % (42-52); Hemoglobin 9.6 g/dL (14.0-18.0); Lymphocyte % 9.9 %; Mean Corpuscular HGB Conc 34 g/dL (31-36); Mean Corpuscular Hemoglobin 30 pg (27-31); Mean Corpuscular Volume 91 fL (80-94); Mean Platelet Volume 9.2 fL (7.4-10.4); Platelet Count 213 10^3/uL (150-450); Red Blood Count 3.17 10^6 /uL (4.18-5.48); Red Cell Distribution Width 18 % (10-15); White Blood Count 9.4 10^3/uL (3.5-10.8)
[2020-08-13 05:50] LABS: INR 1.29 (0.82-1.09)
[2020-08-13 05:57] LABS: BUN/Creatinine Ratio 19.6 (8-20); Calcium 7.7 mg/dL (8.6-10.3); EGFR African American 78.9 (>60); EGFR Non-African American 65.2 (>60)
[2020-08-13 06:11] LABS: Potassium 2.5 mmol/L (3.5-5.0)
[2020-08-13] MEDS ORDERED: Potassium Chlor 10 meq TAB PO ONE (06:20)
[2020-08-13] MEDS: KCL 20 MEQ/100 ML IVPREMIX 20 MEQ/100 ML BAG IV SCH ×3 (07:08→21:27)
[2020-08-13 10:40] LABS: Magnesium 1.7 mg/dL (1.9-2.7)
[2020-08-13] MEDS ORDERED: fentaNYL 100 mcg/2 ml 50 MCG/ML VIAL ONE (11:29)
[2020-08-13] MEDS ORDERED: Magnesium Sulfate IV 3 GM in NS 0.9% 100 ml BAG 100 ML IVPB ONE (12:20)
[2020-08-13 16:31] LABS: Calcium 7.5 mg/dL (8.6-10.3); Potassium 2.9 mmol/L (3.5-5.0)
[2020-08-13 18:21] LABS: BUN/Creatinine Ratio 18.6 (8-20); EGFR Non-African American 88.4 (>60)
[2020-08-13] MEDS: Fluconazole 400 MG IVPREMIX 400 MG/200 ML BAG IVPB SCH (19:08)
[2020-08-14] MEDS: KCL 20 MEQ/100 ML IVPREMIX 20 MEQ/100 ML BAG IV SCH
[2020-08-14 03:33] LABS: BUN/Creatinine Ratio 17.6 (8-20); Calcium 7.7 mg/dL (8.6-10.3); EGFR African American 127.3 (>60); EGFR Non-African American 105.2 (>60); Magnesium 1.9 mg/dL (1.9-2.7)
[2020-08-14] MEDS ORDERED: Magnesium Sulfate 2 gm BAG 2 GM/50 ML BAG IVPB ONE (07:24)
[2020-08-14] MEDS ORDERED: KCL 20 MEQ/100 ML IVPREMIX 20 MEQ/100 ML BAG IV ONE (07:24)
[2020-08-14] MEDS: Fluconazole 400 MG IVPREMIX 400 MG/200 ML BAG IVPB SCH ×2 (17:55→18:02)
[2020-08-15 05:57] LABS: Anion Gap 6 mmol/L (2-11); BUN/Creatinine Ratio 14.5 (8-20); Blood Urea Nitrogen 9 mg/dL (6-24); CO2 Carbon Dioxide 26 mmol/L (22-32); Calcium 7.3 mg/dL (8.6-10.3); Chloride 107 mmol/L (101-111); EGFR African American 156.1 (>60); Glucose 103 mg/dL (70-100); Potassium 2.9 mmol/L (3.5-5.0); Sodium 139 mmol/L (135-145)
[2020-08-15] MEDS ORDERED: Potassium Chlor 20 meq TAB.ER PO ONE (08:39)
[2020-08-15] MEDS ORDERED: Influenza VAC *QUAD* 2020-21* 0.5 ML SYRINGE IM ONE (09:00)
[2020-08-15 09:33] LABS: Magnesium 1.6 mg/dL (1.9-2.7)
[2020-08-15] MEDS ORDERED: Magnesium Sulfate 2 gm BAG 2 GM/50 ML BAG IVPB ONE (10:07)
[2020-08-15] MEDS ORDERED: KCL 20 MEQ/100 ML IVPREMIX 20 MEQ/100 ML BAG IV ONE (10:07)
[2020-08-15 15:35] LABS: % Iron Saturation 40 % (15-55); Ferritin 295.9 ng/mL (24-336); Iron 78 ug/dL (50-212); Total Iron Binding Capacity 193 mcg/dL (250-450); Transferrin 138 mg/dL (203-362); Unsaturated Iron Binding < 178 ug/dL
[2020-08-15 15:41] LABS: Folate 9.04 ng/mL (>3.99)
[2020-08-15 15:42] LABS: Vitamin B12 789 pg/mL (180-914)
[2020-08-15] MEDS: Fluconazole 400 MG IVPREMIX 400 MG/200 ML BAG IVPB SCH (17:57)
[2020-08-16 08:33] LABS: Calcium 7.6 mg/dL (8.6-10.3); EGFR Non-African American 142.2 (>60); Magnesium 1.7 mg/dL (1.9-2.7); Potassium 3.4 mmol/L (3.5-5.0)
[2020-08-16] MEDS ORDERED: Cholecalciferol (VIT D3) 1,000 unit TAB PO SCH (09:00)
[2020-08-17 06:36] LABS: Anion Gap 5 mmol/L (2-11); BUN/Creatinine Ratio 12.3 (8-20); Blood Urea Nitrogen 9 mg/dL (6-24); CO2 Carbon Dioxide 28 mmol/L (22-32); Calcium 7.6 mg/dL (8.6-10.3); Chloride 105 mmol/L (101-111); EGFR African American 129.3 (>60); EGFR Non-African American 106.8 (>60); Glucose 96 mg/dL (70-100); Magnesium 1.5 mg/dL (1.9-2.7); Potassium 3.4 mmol/L (3.5-5.0); Sodium 138 mmol/L (135-145)
[2020-08-17] MEDS ORDERED: Magnesium Sulfate IV 3 GM in NS 0.9% 100 ml BAG 100 ML IVPB ONE (06:57)
[2020-08-17 13:04] LABS: ALT 21 U/L (7-52); AST 17 U/L (13-39); Albumin 2.4 g/dL (3.2-5.2); Albumin/Globulin Ratio 0.8 (1-3); Alkaline Phosphatase 53 U/L (34-104); Total Protein 5.4 g/dL (6.4-8.9)
[2020-08-17 16:20] LABS: C Reactive Protein 23.48 mg/L (<8.01)
[2020-08-18 07:12] LABS: Calcium 7.8 mg/dL (8.6-10.3); EGFR African American 187.1 (>60); EGFR Non-African American 154.6 (>60); Magnesium 1.8 mg/dL (1.9-2.7); Potassium 3.4 mmol/L (3.5-5.0)
[2020-08-19 09:11] VITALS: BP 107/60
== END 2020-08-19 11:45 ==
LOC: ED 12:00 → ICU 15:08 → MERGE 15:08 → MED 08-10 20:37
PROVIDERS: ADMIT Internal Medicine; ATTEND Internal Medicine

== ENCOUNTER 2021-10-19 22:08 | Inpatient (IN) ==
[2021-10-19] MEDS ORDERED: Lactated Ringers 1000 ml BAG IV.FLUID IV ONE (22:12)
[2021-10-19 22:42] LABS: ABS Eosinophils 0.4 10^3/ul (0-0.6); ABS Lymphocytes 1.6 10^3/ul (1.0-4.8); ABS Monocytes 0.9 10^3/ul (0-0.8); ABS Neutrophils 2.8 10^3/ul (1.5-7.7); Eosinophil % 6.4 %; Hematocrit 26 % (42-52); Hemoglobin 8.7 g/dL (14.0-18.0); Lymphocyte % 28.7 %; Mean Corpuscular HGB Conc 33 g/dL (31-36); Mean Corpuscular Hemoglobin 30 pg (27-31); Mean Corpuscular Volume 89 fL (80-94); Mean Platelet Volume 8.1 fL (7.4-10.4); Platelet Count 198 10^3/uL (150-450); Red Blood Count 2.95 10^6 /uL (4.18-5.48); Red Cell Distribution Width 15 % (10-15); White Blood Count 5.7 10^3/uL (3.5-10.8)
[2021-10-19 22:48] LABS: Activated Partial Thrombo Time 44.7 seconds (26.0-38.0); INR 1.76 (0.86-1.15)
[2021-10-19 23:03] LABS: Urine Appearance Turbid; Urine Bilirubin Negative (Negative); Urine Blood 3+ (Negative); Urine Color Yellow; Urine Glucose Negative (Negative); Urine Ketones Negative (Negative); Urine Nitrite Positive (Negative); Urine Protein 2+(100 mg/dL) (Negative); Urine Specific Gravity 1.011 (1.002-1.030); Urine Urobilinogen Negative (Negative)
[2021-10-19 23:14] LABS: Urine Bacteria Absent (Absent); Urine Red Blood Cell 3+(>10/hpf) (Absent); Urine Renal Epithelial Cells Present (Absent); Urine White Blood Cell 3+(>20/hpf) (Absent)
[2021-10-19 23:18] LABS: Albumin 3.4 g/dL (3.2-5.2); Albumin/Globulin Ratio 1.4 (1-3); C Reactive Protein 12.43 mg/L (<8.01); Calcium 8.5 mg/dL (8.6-10.3); Globulin 2.4 g/dL (2-4); Total Bilirubin 0.2 mg/dL (0.2-1.0); Total Protein 5.8 g/dL (6.4-8.9); eGFR CKD-EPI 80.5 (>60)
[2021-10-19] MEDS ORDERED: Piperacillin/Tazobac ADVAN 3.375 GM in NS 0.9% 100 ml BAG 100 ML IV ONE (23:42)
[2021-10-19] MEDS ORDERED: Fluconazole 200 MG IVPREMIX 200 MG/100 ML BAG IVPB ONE (23:45)
[2021-10-19 23:46] LABS: High Sensitivity Troponin 1 Hr < 3 pg/mL (<20)
[2021-10-20] MEDS ORDERED: Meropenem 1 GM PREMIX(*) 1 GM/50 ML BAG IV SCH (04:00)
[2021-10-20 05:22] LABS: Anion Gap 5 mmol/L (2-11); Blood Urea Nitrogen 19 mg/dL (6-24); CO2 Carbon Dioxide 23 mmol/L (22-32); Calcium 8.5 mg/dL (8.6-10.3); Chloride 108 mmol/L (101-111); Glucose 89 mg/dL (70-100); Magnesium 1.8 mg/dL (1.9-2.7); Potassium 3.9 mmol/L (3.5-5.0); Sodium 136 mmol/L (135-145); Total Iron Binding Capacity 315 mcg/dL (250-450); Transferrin 225 mg/dL (203-362)
[2021-10-20 05:33] LABS: % Iron Saturation 6 % (15-55); Iron < 20 ug/dL (50-212); Unsaturated Iron Binding 295 ug/dL
[2021-10-20] MEDS ORDERED: Magnesium Sulfate 2 gm BAG 2 GM/50 ML BAG IVPB ONE (06:11)
[2021-10-20 06:50] LABS: ABS Basophils 0.1 10^3/ul (0-0.2); ABS Eosinophils 0.3 10^3/ul (0-0.6); ABS Lymphocytes 1.8 10^3/ul (1.0-4.8); ABS Monocytes 0.9 10^3/ul (0-0.8); ABS Neutrophils 2.5 10^3/ul (1.5-7.7); Hematocrit 28 % (42-52); Hemoglobin 9.2 g/dL (14.0-18.0); Lymphocyte % 31.9 %; Mean Corpuscular HGB Conc 33 g/dL (31-36); Mean Corpuscular Hemoglobin 30 pg (27-31); Mean Corpuscular Volume 90 fL (80-94); Mean Platelet Volume 8.4 fL (7.4-10.4); Nucleated Red Blood Cells % 0.1; Platelet Count 217 10^3/uL (150-450); Red Blood Count 3.11 10^6 /uL (4.18-5.48); Red Cell Distribution Width 15 % (10-15); White Blood Count 5.6 10^3/uL (3.5-10.8)
[2021-10-20 10:00] LABS: INR 1.42 (0.86-1.15)
[2021-10-20] MEDS ORDERED: Cefepime ADVAN 1 GM in NS 0.9% 50 ML 50 ML IVPB SCH (10:00)
[2021-10-20] MEDS ORDERED: Lactated Ringers 1000 ml BAG 1,000 ML IV SCH (10:00)
[2021-10-20] MEDS: Cefepime 1 GM in Dextrose 1 GM/50 ML BAG IV SCH ×2 (12:04→21:31)
[2021-10-20] MEDS: Linezolid 600 MG IVPREMIX(*) 600 MG/300 ML BAG IVPB SCH ×2 (15:02→21:31)
[2021-10-20] MEDS: Lactated Ringers 1000 ml BAG 1,000 ML IV SCH (18:31)
[2021-10-20] MEDS: Enoxaparin 100 MG/ML SYR SUBCUT SCH (19:58)
[2021-10-20] MEDS ORDERED: Fluconazole 200 MG IVPREMIX 200 MG/100 ML BAG IVPB SCH (21:00)
[2021-10-21 06:14] LABS: Hematocrit 26 % (42-52); Hemoglobin 8.7 g/dL (14.0-18.0); Mean Corpuscular HGB Conc 34 g/dL (31-36); Mean Corpuscular Hemoglobin 30 pg (27-31); Mean Corpuscular Volume 89 fL (80-94); Mean Platelet Volume 8.4 fL (7.4-10.4); Platelet Count 230 10^3/uL (150-450); Red Blood Count 2.89 10^6 /uL (4.18-5.48); Red Cell Distribution Width 15 % (10-15)
[2021-10-21 06:30] LABS: Calcium 8.5 mg/dL (8.6-10.3); Potassium 4.2 mmol/L (3.5-5.0); eGFR CKD-EPI 83.5 (>60)
[2021-10-21] MEDS: Enoxaparin 100 MG/ML SYR SUBCUT SCH (09:15)
[2021-10-21] MEDS: Cefepime 1 GM in Dextrose 1 GM/50 ML BAG IV SCH (09:22)
[2021-10-21] MEDS: Linezolid 600 MG IVPREMIX(*) 600 MG/300 ML BAG IVPB SCH (12:02)
[2021-10-21] MEDS: Lactated Ringers 1000 ml BAG 1,000 ML IV SCH (12:10)
[2021-10-22 05:23] LABS: Hematocrit 26 % (42-52); Hemoglobin 8.6 g/dL (14.0-18.0); Mean Corpuscular HGB Conc 33 g/dL (31-36); Mean Corpuscular Hemoglobin 29 pg (27-31); Mean Corpuscular Volume 89 fL (80-94); Mean Platelet Volume 8.6 fL (7.4-10.4); Platelet Count 247 10^3/uL (150-450); Red Blood Count 2.91 10^6 /uL (4.18-5.48); Red Cell Distribution Width 15 % (10-15); White Blood Count 5.5 10^3/uL (3.5-10.8)
[2021-10-22 05:35] LABS: INR 1.29 (0.86-1.15)
[2021-10-22 05:48] LABS: Calcium 8.6 mg/dL (8.6-10.3); Magnesium 1.9 mg/dL (1.9-2.7); Potassium 4.1 mmol/L (3.5-5.0); eGFR CKD-EPI 81.5 (>60)
[2021-10-22] MEDS ORDERED: fentaNYL 100 mcg/2 ml 50 MCG/ML VIAL ONE (09:06)
[2021-10-22] MEDS ORDERED: ceFAZolin 1 GM ADVAN 1 GM ADDV.VIAL IVPB ONE (09:06)
[2021-10-22] MEDS ORDERED: Bupivacaine 0.25% SDV PF 10 ML VIAL INJ ONE ×2 (09:24)
[2021-10-23 05:31] LABS: Hematocrit 28 % (42-52); Hemoglobin 9.4 g/dL (14.0-18.0); Mean Corpuscular HGB Conc 34 g/dL (31-36); Mean Corpuscular Hemoglobin 30 pg (27-31); Mean Corpuscular Volume 89 fL (80-94); Mean Platelet Volume 8.4 fL (7.4-10.4); Platelet Count 271 10^3/uL (150-450); Red Blood Count 3.14 10^6 /uL (4.18-5.48); Red Cell Distribution Width 15 % (10-15); White Blood Count 7.8 10^3/uL (3.5-10.8)
[2021-10-23 06:04] LABS: Calcium 8.9 mg/dL (8.6-10.3); Magnesium 1.9 mg/dL (1.9-2.7); Potassium 4.1 mmol/L (3.5-5.0); eGFR CKD-EPI 86.6 (>60)
[2021-10-23] MEDS ORDERED: Magnesium Hydroxide LIQ 30 ML UDC PO ONE (13:14)
[2021-10-24 06:07] LABS: Hematocrit 30 % (42-52); Mean Corpuscular HGB Conc 33 g/dL (31-36); Mean Corpuscular Hemoglobin 30 pg (27-31); Mean Corpuscular Volume 89 fL (80-94); Mean Platelet Volume 8.5 fL (7.4-10.4); Platelet Count 284 10^3/uL (150-450); Red Blood Count 3.36 10^6 /uL (4.18-5.48); Red Cell Distribution Width 15 % (10-15)
[2021-10-24] MEDS ORDERED: Senna/Docusate 8.6/50 mg (NF) TAB PO SCH (09:00)
[2021-10-24] MEDS: Lidocaine PATCH 5% PATCH TRANSDERM SCH ×2 (09:56→18:23)
[2021-10-24] MEDS: Senna TAB 8.6 mg TAB PO SCH (09:57)
[2021-10-25 04:50] LABS: Hematocrit 31 % (42-52); Hemoglobin 10.1 g/dL (14.0-18.0); Mean Corpuscular HGB Conc 33 g/dL (31-36); Mean Corpuscular Hemoglobin 30 pg (27-31); Mean Corpuscular Volume 89 fL (80-94); Mean Platelet Volume 8.5 fL (7.4-10.4); Platelet Count 309 10^3/uL (150-450); Red Blood Count 3.41 10^6 /uL (4.18-5.48); Red Cell Distribution Width 16 % (10-15); White Blood Count 6.8 10^3/uL (3.5-10.8)
[2021-10-25 05:06] LABS: Calcium 9.1 mg/dL (8.6-10.3); Magnesium 1.9 mg/dL (1.9-2.7); eGFR CKD-EPI 79.6 (>60)
[2021-10-25] MEDS ORDERED: Magnesium Sulfate 2 gm BAG 2 GM/50 ML BAG IVPB ONE (07:05)
[2021-10-25] MEDS: Lidocaine PATCH 5% PATCH TRANSDERM SCH ×2 (07:58→08:01)
[2021-10-25] MEDS: Senna TAB 8.6 mg TAB PO SCH (07:59)
[2021-10-25 11:15] LABS: Rapid COVID-19 Molecular Undetected (Undetected)
[2021-10-25 12:55] VITALS: BP 88/54
== END 2021-10-25 14:15 | DRG 694 ==
LOC: ED 22:08 → EDHOLD 10-20 00:51 → SUATTDRO 10-20 00:51 → MEDTELE 10-20 03:13
PROVIDERS: ADMIT Hospitalist; ATTEND Student in an Organized Health Care Education/Training Program

== ENCOUNTER 2022-08-05 07:45 | Observation (INO) ==
[2022-08-05] MEDS ORDERED: cefTRIAXone 1 gm/50 mL D5W 1 GM/50 ML BAG IV ONE (07:50)
[2022-08-05] MEDS ORDERED: NS 0.9% 1000 ml BAG 1,000 ML IV ONE ×2 (07:50→09:37)
[2022-08-05 08:06] LABS: ABS Basophils 0.1 10^3/ul (0-0.2); ABS Eosinophils 0.3 10^3/ul (0-0.6); ABS Lymphocytes 1.2 10^3/ul (1.0-4.8); ABS Monocytes 0.8 10^3/ul (0-0.8); ABS Neutrophils 4.2 10^3/ul (1.5-7.7); Eosinophil % 4.7 %; Hematocrit 28 % (42-52); Hemoglobin 9.3 g/dL (14.0-18.0); Lymphocyte % 18.7 %; Mean Corpuscular HGB Conc 33 g/dL (31-36); Mean Corpuscular Hemoglobin 30 pg (27-31); Mean Corpuscular Volume 91 fL (80-94); Mean Platelet Volume 8.9 fL (7.4-10.4); Platelet Count 234 10^3/uL (150-450); Red Blood Count 3.14 10^6 /uL (4.18-5.48); Red Cell Distribution Width 17 % (10-15); White Blood Count 6.6 10^3/uL (3.5-10.8)
[2022-08-05 08:19] LABS: Activated Partial Thrombo Time 50.5 seconds (26.0-38.0); INR 2.17 (0.88-1.18)
[2022-08-05 08:35] LABS: Albumin 3.4 g/dL (3.2-5.2); Albumin/Globulin Ratio 1.5 (1-3); C Reactive Protein 10.01 mg/L (<8.01); Calcium 8.4 mg/dL (8.6-10.3); Globulin 2.2 g/dL (2-4); Potassium 4.3 mmol/L (3.5-5.0); Total Bilirubin 0.2 mg/dL (0.2-1.0); Total Protein 5.6 g/dL (6.4-8.9); eGFR CKD-EPI 71.4 (>60)
[2022-08-05 08:45] LABS: Urine Appearance Turbid; Urine Bilirubin Negative (Negative); Urine Blood 2+ (Negative); Urine Color Yellow; Urine Glucose Negative (Negative); Urine Ketones Trace (Negative); Urine Nitrite Negative (Negative); Urine Protein 2+(100 mg/dL) (Negative); Urine Specific Gravity 1.029 (1.002-1.030); Urine Urobilinogen Negative (Negative)
[2022-08-05] MEDS ORDERED: Iohexol 350 (CONTRAST) 500 ML MDV IV ONE (08:55)
[2022-08-05 09:07] LABS: Urine Bacteria Absent (Absent); Urine Red Blood Cell 3+(>10/hpf) (Absent); Urine White Blood Cell 3+(>20/hpf) (Absent)
[2022-08-05] MEDS ORDERED: Pantoprazole VIAL 40 MG VIAL IV ONE (09:37)
[2022-08-05 09:48] LABS: High Sensitivity Troponin 1 Hr 3 pg/mL (<20)
[2022-08-05 10:30] LABS: ABS Eosinophils 0.2 10^3/ul (0-0.6); ABS Monocytes 0.6 10^3/ul (0-0.8); ABS Neutrophils 5.7 10^3/ul (1.5-7.7); Eosinophil % 2.8 %; Hematocrit 27 % (42-52); Hemoglobin 8.4 g/dL (14.0-18.0); Lymphocyte % 13.3 %; Mean Corpuscular HGB Conc 32 g/dL (31-36); Mean Corpuscular Hemoglobin 29 pg (27-31); Mean Corpuscular Volume 91 fL (80-94); Platelet Count 217 10^3/uL (150-450); Red Blood Count 2.91 10^6 /uL (4.18-5.48); Red Cell Distribution Width 17 % (10-15); White Blood Count 7.5 10^3/uL (3.5-10.8)
[2022-08-05 15:58] VITALS: BP 139/75
[2022-08-05] MEDS ORDERED: fentaNYL 100 mcg/2 ml 50 MCG/ML VIAL ONE (16:28)
[2022-08-05] MEDS ORDERED: Midazolam 5 mg/5 ml VIAL 1 mg/ml 5 ml VIAL (5 mg) ONE (16:28)
[2022-08-05] MEDS ORDERED: Piperacillin/Tazobac ADVAN 3.375 GM in NS 0.9% 100 ml BAG 100 ML IV ONE (17:05)
[2022-08-05 17:25] LABS: Ferritin 7.9 ng/mL (24-336)
[2022-08-05] MEDS ORDERED: Zosyn per Pharmacy NOTE FOLLOW UP SCH (18:00)
[2022-08-05] MEDS ORDERED: Pantoprazole VIAL 40 MG VIAL IV SCH (21:00)
== END 2022-08-05 20:01 ==
LOC: EDHOLD 07:45 → ED 07:45 → EDHOLD 13:30
PROVIDERS: ADMIT Hospitalist; ATTEND Hospitalist

== ENCOUNTER 2024-02-02 07:56 | Inpatient (IN) ==
[2024-02-02 08:24] LABS: Hematocrit 39.6 % (38-53); Hemoglobin 13.1 g/dL (13.2-16.3); Mean Corpuscular Hgb Conc 33.1 g/dL (31-36); Mean Corpuscular Volume 96.5 fL (80-97); Mean Platelet Volume 9.5 fL (7.5-11.2); Platelet Count 244 10^3/uL (150-450); Red Cell Distribution Width 14.2 % (12-17); White Blood Count 17.8 10^3/uL (3.6-10.2)
[2024-02-02] MEDS: Acetaminophen IV 1 GM/100ML 1,000 MG/100 ML BAG IV ONE (08:29)
[2024-02-02] MEDS: Lactated Ringers SEPSIS* BAG 2,190 ML IV ONE (08:30)
[2024-02-02] MEDS: Piperacillin/Tazobac 3.375 BAG 3.375 GM/100 ML BAG IV ONE (08:30)
[2024-02-02 08:56] LABS: High Sens Troponin Baseline 19 pg/mL (<20)
[2024-02-02 08:56] LABS: ABS Basophils 0.2 10^3/uL (0.0-0.1); ABS Lymphocytes 0.7 10^3/uL (1.0-4.8); ABS Monocytes 1.8 10^3/uL (0.0-1.1); ABS Neutrophils 15.2 10^3/uL (1.5-7.6); Lymphocyte % 3.7 %
[2024-02-02 09:10] LABS: ALT 7 U/L (7-52); Albumin/Globulin Ratio 1.2 (1-3); Alkaline Phosphatase 97 U/L (35-149); Anion Gap 13 mmol/L (2-16); Blood Urea Nitrogen 24 mg/dL (6-24); C Reactive Protein 231.77 mg/L (<8.01); CO2 Carbon Dioxide 23 mmol/L (22-32); Calcium 9.3 mg/dL (8.6-10.3); Chloride 102 mmol/L (101-111); Creatinine, Serum 1.49 mg/dL (0.67-1.17); Globulin 3.3 g/dL (2-4); Glucose 116 mg/dL (70-100); Sodium 138 mmol/L (135-145); Total Bilirubin 0.9 mg/dL (0.2-1.0); Total Protein 7.3 g/dL (6.4-8.9); eGFR CKD-EPI 49.9 (>60)
[2024-02-02 09:12] LABS: Activated Partial Thrombo Time 45.5 seconds (26.0-38.0); INR 2.31 (0.83-1.13)
[2024-02-02] MEDS: Vancomycin 1,500 MG in NS 0.9% 250 ml 250 ML IVPB ONE (09:35)
[2024-02-02 10:15] LABS: Urine Appearance Turbid; Urine Bilirubin Negative (Negative); Urine Blood 2+ (Negative); Urine Color Yellow; Urine Glucose Negative (Negative); Urine Ketones 1+ (Negative); Urine Nitrite Negative (Negative); Urine Protein 1+ (>=30 mg/dL) (Negative); Urine Specific Gravity 1.033 (1.002-1.030); Urine Urobilinogen Negative (Negative); Urine pH 7.5 (5.0-8.0)
[2024-02-02 10:17] LABS: Urine Bacteria 1+ /HPF (Absent); Urine Red Blood Cell 3+(>10/hpf) /HPF (0-Trace); Urine White Blood Cell 3+(>20/hpf) /HPF (0-Trace)
[2024-02-02] MEDS ORDERED: Ondansetron 4 mg VIAL 2 MG/ML 2 ml VIAL IV PRN (10:33)
[2024-02-02 10:34] LABS: Potassium Redraw 3.8 mmol/L (3.5-5.0)
[2024-02-02] MEDS: cefTRIAXone 2 gm/50 mL D5W 2 GM/50 ML BAG IV SCH (15:16)
[2024-02-02] MEDS: Acetaminophen IV 1 GM/100ML 1,000 MG/100 ML BAG IV PRN (22:00)
[2024-02-02] MEDS: Orphenadrine Citrate INJ 30 mg/ml 2 ml VIAL (60 mg) IM ONE (23:02)
[2024-02-03] MEDS: Lactated Ringers 1000 ml BAG 1,000 ML IV SCH (08:40)
[2024-02-03] MEDS: Linaclotide 290 mcg CAP (NF) PO SCH (08:47)
[2024-02-03] MEDS: Senna TAB 8.6 mg TAB PO SCH (08:51)
[2024-02-03 08:57] LABS: ABS Basophils 0.1 10^3/uL (0.0-0.1); ABS Lymphocytes 0.9 10^3/uL (1.0-4.8); ABS Monocytes 1.3 10^3/uL (0.0-1.1); ABS Neutrophils 11.9 10^3/uL (1.5-7.6); Eosinophil % 0.1 %; Hematocrit 30.7 % (38-53); Hemoglobin 10.3 g/dL (13.2-16.3); Lymphocyte % 6.1 %; Mean Corpuscular Hemoglobin 32.4 pg (27-33); Mean Corpuscular Hgb Conc 33.6 g/dL (31-36); Mean Corpuscular Volume 96.6 fL (80-97); Mean Platelet Volume 9.9 fL (7.5-11.2); Platelet Count 180 10^3/uL (150-450); Red Blood Count 3.18 10^6/uL (4.06-5.63); Red Cell Distribution Width 14.1 % (12-17); White Blood Count 14.1 10^3/uL (3.6-10.2)
[2024-02-03] MEDS ORDERED: Senna/Docusate 8.6/50 mg (NF) TAB PO SCH (09:00)
[2024-02-03 09:13] LABS: Calcium 8.2 mg/dL (8.6-10.3); Creatinine, Serum 1.35 mg/dL (0.67-1.17); Magnesium 1.6 mg/dL (1.9-2.7); Potassium 3.5 mmol/L (3.5-5.0); eGFR CKD-EPI 56.1 (>60)
[2024-02-03] MEDS: Magnesium Sulfate 2 gm BAG 2 GM/50 ML BAG IVPB ONE (11:54)
[2024-02-03] MEDS: Magnesium Sulfate IV 1GM/100ML 1 GM/100 ML BAG IV ONE (13:10)
[2024-02-04] MEDS: Lactated Ringers 1000 ml BAG 1,000 ML IV SCH ×2 (03:10→03:14)
[2024-02-04 08:36] LABS: Creatinine, Serum 1.14 mg/dL (0.67-1.17); Potassium 3.5 mmol/L (3.5-5.0); eGFR CKD-EPI 68.8 (>60)
[2024-02-04] MEDS ORDERED: Polyethylene Glycol 3350 17 GM PACKET PO PRN (15:54)
[2024-02-04] MEDS: Magnesium Hydroxide LIQ 30 ML UDC PO PRN (16:20)
[2024-02-04] MEDS: Magnesium Hydroxide LIQ 30 ML UDC PO SCH (19:30)
[2024-02-05 09:55] VITALS: BP 152/76
== END 2024-02-05 10:30 | disposition home or self-care (01) | DRG 698 ==
LOC: ED 07:56 → SUATTDRO 10:33 → EDHOLD 10:33 → MED 16:11
PROVIDERS: ADMIT Student in an Organized Health Care Education/Training Program; ATTEND Internal Medicine